=== PATIENT | female | born 1960 | race African-American/Black ===

== ENCOUNTER 2016-12-02 13:31 | Inpatient (IN) | payer OTHER ==
[2016-12-02 13:37] VITALS: BMI 26.0
--- NOTE | 2016-12-02 13:59 | PDOC ---
Attending Attestation - Resident Resident Name: Flako Rossson - ED Attending Attestation I have performed the following: I have examined & evaluated the patient, The case was reviewed & discussed with the resident, I agree w/resident's findings & plan, Exceptions are as noted - HPI HPI: 56 yo F history HIV, diverticulosis, bowel resection presents with 1 month history of intermittent nausea, vomiting, and abdominal pain. She also reports diarrhea and soft green stool. She previously followed up at [facility], but more recently has been seen at [facility] in the inpatient and outpatient setting. She states she had endoscopy while admitted, no acute findings. She was discharged without any changes in her treatment, and her symptoms have continued. She reports recent CD4 count ~200. - Physicial Exam PE: GENERAL: Awake, alert, and fully oriented, in no acute distress. Appears uncomfortable. HEAD: No signs of trauma EYES: PERRLA, EOMI, sclera anicteric, conjunctiva clear ENT: Auricles normal inspection, hearing grossly normal, nares patent, oropharynx clear without exudates. Dry mucosa NECK: Normal ROM, supple, no lymphadenopathy, JVD, or masses LUNGS: Breath sounds equal, clear to auscultation bilaterally. No wheezes, and no crackles HEART: Regular rate and rhythm, normal S1 and S2, no murmurs, rubs or gallops ABDOMEN: Soft, diffusely tender, normoactive bowel sounds. No guarding, no rebound. No masses EXTREMITIES: Normal range of motion, no edema. No clubbing or cyanosis. No cords, erythema, or tenderness NEUROLOGICAL: Cranial nerves II through XII grossly intact. Normal speech, normal gait SKIN: Warm, Dry, normal turgor, no rashes or lesions noted. - Medical Decision Making Patient with diffuse abd tenderness, found to have elevated LFTs. Will obtain gallbladder sono to evaluate for possible GB pathology. If negative, will obtain CT a/p. Will also send stool studies, as she may also be at risk for opportunistic infections. Plan for admission.
[2016-12-02] MEDS ORDERED: SODIUM CHLORIDE 250 ML IV STA (14:16)
--- NOTE | 2016-12-02 14:16 | PDOC ---
History of Present Illness - General Chief Complaint: Nausea/Vomiting Stated Complaint: NAUSEA, LOSS OF APPETITE Time Seen by Provider: 12/02/16 13:55 - History of Present Illness Initial Comments: 12/02/16 13:58 56 yo F with h/o HIV, diverticulosis, and bowel resection who presents with abdominal pain. Pt. reports one month of ongoing nausea/vomitting, abdominal pain, and diarrhea with intermixed soft green stools. She states that she was admitted at [facility] [employer] for 4 days for GI complaint. While inpatient she received endoscopy and had negative evaluation and discharged without antibiotics. Abdominal pain is diffuse, worsening, chronic, and crampy. She endorses lightheadedness, SOB, and chronic neuropathic pain, and episode of urinary incontinence 2 days prior. Denies chest pain, fevers, or chills, dysuria. Has been unable to tolerate PO intake d/t recurrent vomiting and unable to take prescription meds. Denies postprandial pain. No alleviators. Has h/o left sided spigelian hernia. Allergic to Metocloprmide/tongue swelling. Pt. reports CD4 count 200. Past History - Past Medical History Allergies/Adverse Reactions: Allergies Allergy/AdvReac Type Severity Reaction Status Date / Time erythromycin base Allergy Intermediate Verified 12/02/16 13:37 [Erythromycin Base] iodine [Iodine] Allergy Intermediate Hives Verified 12/02/16 13:37 sulfamethoxazole Allergy Intermediate Verified 12/02/16 13:37 [From Bactrim DS] trimethoprim Allergy Intermediate Verified 12/02/16 13:37 [From Bactrim DS] acetaminophen [From Vicodin] Allergy Mild Itching Verified 12/02/16 13:37 codeine [Codeine] Allergy Mild Itching Verified 12/02/16 13:37 hydrocodone bitartrate Allergy Mild Itching Verified 12/02/16 13:37 [From Vicodin] Penicillins Allergy Mild Itching Verified 12/02/16 13:37 metoclopramide HCl Allergy TONGUE Verified 12/02/16 13:37 [From Reglan] SWELLING prochlorperazine edisylate Allergy Verified 12/02/16 13:37 [From Compazine] prochlorperazine maleate Allergy Verified 03/30/12 14:44 [From Compazine] quetiapine fumarate Allergy Verified 01/06/13 14:44 [From Seroquel] Home Medications: Ambulatory Orders Atazanavir [Reyataz -] 300 mg PO DAILY 07/13/11 Emtricitabine/Tenofovir [Truvada -] 200 tab PO DAILY 07/13/11 Oxycodone HCl [Roxicodone -] 5 mg PO Q6H PRN 03/10/12 Acetaminophen [Tylenol .Regular Strength -] 325 mg PO Q4H 04/25/12 Candesartan Cilexetil [Atacand] 8 mg PO BID 04/25/12 Polyethylene Glycol 3350 [Miralax 255 gm Btl] 17 gm PO BID #1 bottle 04/25/12 Psyllium Seed [Metamucil] 1 each PO BID #0 packet 04/25/12 Ranitidine Oral Solution [Zantac Oral Solution -] 150 mg PO DAILY 04/25/12 Zolpidem Tartrate [Ambien] 5 mg PO PRN 04/25/12 Ritonavir [Norvir] 100 mg PO 04/30/12 Anemia: No Asthma: Yes Cancer: Yes (See breast CA) Cardiac Disorders: No CVA: No COPD: No CHF: No Dementia: No Diabetes: No GI Disorders: Yes (GERD, DIVERTICULITIS, HERNIA) Disorders: No HTN: No Hypercholesterolemia: No HIV: Yes Liver Disease: No Seizures: No Thyroid Disease: No Other medical history: NEUROPATHY - Surgical History Abdominal Surgery: Yes (HERNIA) Appendectomy: No Cardiac Surgery: No Cholecystectomy: No GI Surgery: Yes (COLOSTOMY WITH REVERSAL) Lung Surgery: Yes (BIOPSY,DECREASED 02) Neurologic Surgery: No Orthopedic Surgery: No - Psycho/Social/Smoking Cessation Hx Anxiety: No Suicidal Ideation: No Smoking Status: No Smoking History: Current every day smoker Have you smoked in the past 12 months: No Number of Cigarettes Smoked Daily: 6 Cigars Per Day: 0 Information on smoking cessation initiated: No 'Breaking Loose' booklet given: 04/25/12 Hx Alcohol Use: No Drug/Substance Use Hx: No Substance Use Type: None Hx Substance Use Treatment: Yes Review of Systems - Review of Systems Comments:: 12/02/16 13:58 GENERAL/CONSTITUTIONAL: No fever or chills. No weakness. HEAD, EYES, EARS, NOSE AND THROAT: No change in vision. No ear pain or discharge. No sore throat.- CARDIOVASCULAR: No chest pain or shortness of breath RESPIRATORY: No cough, wheezing, or hemoptysis. GASTROINTESTINAL: + No nausea, and vomiting, diarrhea. No constipation. GENITOURINARY: No dysuria, frequency, or change in urination. MUSCULOSKELETAL: No joint or muscle swelling or pain. No neck or back pain. SKIN: No rash NEUROLOGIC: No headache, vertigo, loss of consciousness, or change in strength/ sensation. ENDOCRINE: No increased thirst. No abnormal weight change HEMATOLOGIC/LYMPHATIC: No anemia, easy bleeding, or history of blood clots. ALLERGIC/IMMUNOLOGIC: No hives or skin allergy. *Physical Exam - Vital Signs Last Vital Signs Temp Pulse Resp BP Pulse Ox 99.0 F 83 20 132/57 100 12/02/16 13:31 12/02/16 13:31 12/02/16 13:31 12/02/16 13:31 12/02/16 13:31 - Physical Exam Comments: 12/02/16 13:59 GENERAL: Awake, alert, and fully oriented, in no acute distress HEAD: No signs of trauma, normocephalic, atraumatic EYES: PERRLA, EOMI, sclera anicteric, conjunctiva clear ENT: Auricles normal inspection, hearing grossly normal, nares patent, oropharynx clear without exudates. Moist mucosa NECK: Normal ROM, supple, no lymphadenopathy, JVD, or masses LUNGS: No distress, speaks full sentences, clear to auscultation bilaterally HEART: Regular rate and rhythm, normal S1 and S2, no murmurs, rubs or gallops, peripheral pulses normal and equal bilaterally. ABDOMEN: + Midline incision scar and LLQ horizontal scar. Soft,diffusely ttp.+ Ttp superior to non buldging LLQ hernia. Normoactive bowel sounds. No guarding , no rebound. No masses. Absent CVA ttp.+ BL CVA ttp. EXTREMITIES : Normal inspection, Normal range of motion, no edema. No clubbing or cyanosis. SKIN: Warm, Dry, normal turgor, no rashes or lesions noted. ED Treatment Course - LABORATORY CBC & Chemistry Diagram: 12/02/16 14:30 12/02/16 14:30 Medical Decision Making - Medical Decision Making 12/02/16 15:01 56 yo F with h/o diverticulosis, and bowel resection who presents with abdominal pain. Pt. reports one month of ongoing nausea/vomiting, abdominal pain , and diarrhea with intermixed soft green stools. Recently admitted at [facility] for 4 days for GI complaint. While inpatient she received endoscopy and had negative evaluation and discharged without antibiotics. Physical exam reveals hemodynamic stability and diffuse abdominal ttp. Has been unable to tolerate PO intake d/t recurrent vomiting and unable to take prescription meds. States that CD4 count is 200. DDx:Diverticulitis/diverticulosis, CMV colitis, Cryptosporodium Incarcerated hernia, Strangulated hernia, colitis, cystitis, pyelonephriits. ED course: CBC, CMP, UA, Lipase, Lactate NS 1 L Dilaudid .5 mg IV Zofran 4 mg IV 12/02/16 15:50 WBC: 3.9 12/02/16 15:51 ASt/ALT: 138/127 Alk Phosph: 202 Bili: 2.3 12/02/16 15:52 Lipase 142 Lactic acid: 1.2 12/02/16 18:46 GB U/S: Neg 12/02/16 20:30 CT Abdomen/Pelvis: Non obstructed ventral hernias and low attenuation splenic lesion EKG : unremarkable *DC/Admit/Observation/Transfer Diagnosis at time of Disposition: Combined abdominal pain, vomiting, and diarrhea - Discharge Dispostion Admit: Yes - Referrals Referrals: STAFF,NOT ON [Primary Care Provider] -
[2016-12-02] MEDS ORDERED: ONDANSETRON 4 MG/2 ML VIAL IVPUSH ONE (14:44)
[2016-12-02 14:46] LABS: MCH 26.7 pg (25.7-33.7); MCHC 34.4 g/dl (32.0-36.0); MEAN CELL VOLUME 77.6 fl (80-96); MEAN PLT VOLUME 8.4 fl (7.5-11.1); PLATELET COUNT 140 K/MM3 (134-434); RDW 15.8 % (11.6-15.6); WHITE BLOOD COUNT 3.9 K/mm3 (4.0-10.0)
[2016-12-02] MEDS ORDERED: HYDROmorphone HCL CARPU-JECT 1 MG/1 ML DISP.SYRIN IVPB ONE ×2 (14:54→21:02)
[2016-12-02 15:06] LABS: ALK PHOS 202 U/L (45-117); ANION GAP 11 (8-16); BILIRUBIN,TOTAL 2.3 mg/dL (0.2-1.0); CALCIUM 10.6 mg/dL (8.5-10.1); CO2 22 mmol/L (21-32); CREATININE 0.6 mg/dL (0.55-1.02); GLUCOSE,RANDOM 84 mg/dL (74-106); SGOT/AST 138 U/L (15-37); SGPT/ALT 127 U/L (12-78); TOT PROT 6.1 g/dl (6.4-8.2)
[2016-12-02] MEDS ORDERED: HYDROmorphone HCL CARPU-JECT 1 MG/1 ML DISP.SYRIN ONE ×2 (15:42→21:07)
[2016-12-02] MEDS ORDERED: ONDANSETRON 4 MG/2 ML VIAL ONE ×2 (15:43→20:15)
[2016-12-02 15:44] LABS: TOTAL CELLS COUNTED 100
[2016-12-02] MEDS ORDERED: ONDANSETRON 4 MG/2 ML VIAL IVPB ONE (20:14)
[2016-12-02] MEDS ORDERED: SODIUM CHLORIDE 1,000 ML IV STA (20:19)
--- NOTE | 2016-12-02 20:25 | PN ---
Teaching Attending Note Name of Resident: Smitha Rivera ATTENDING PHYSICIAN STATEMENT I saw and evaluated the patient. I reviewed the resident's note and discussed the case with the resident. I agree with the resident's findings and plan as documented. SUBJECTIVE: 56 yo F with hx. of HIV, Diverticulosis, bowel resection who presents with abdominal pain. States this pain has been present for one month. States she has been having diarrhea also. Notes she was recently admittted to [facility] 3 weeks ago for same complaint. States she had a extensive workup there. Notes she had a EGD there that was negative. Allergies: Reglan Allergies Allergy/AdvReac Type Severity Reaction Status Date / Time erythromycin base Allergy Intermediate Verified 12/02/16 13:37 [Erythromycin Base] iodine [Iodine] Allergy Intermediate Hives Verified 12/02/16 13:37 sulfamethoxazole Allergy Intermediate Verified 12/02/16 13:37 [From Bactrim DS] trimethoprim Allergy Intermediate Verified 12/02/16 13:37 [From Bactrim DS] acetaminophen [From Vicodin] Allergy Mild Itching Verified 12/02/16 13:37 codeine [Codeine] Allergy Mild Itching Verified 12/02/16 13:37 hydrocodone bitartrate Allergy Mild Itching Verified 12/02/16 13:37 [From Vicodin] Penicillins Allergy Mild Itching Verified 12/02/16 13:37 metoclopramide HCl Allergy TONGUE Verified 12/02/16 13:37 [From Reglan] SWELLING prochlorperazine edisylate Allergy Verified 12/02/16 13:37 [From Compazine] prochlorperazine maleate Allergy Verified 03/30/12 14:44 [From Compazine] quetiapine fumarate Allergy Verified 03/30/12 14:44 [From Seroquel] OBJECTIVE: Physical: VS: Vital Signs Period Temp Pulse Resp BP Sys/De Guzman Pulse Ox Last 24 Hr 98.1 F-99.0 F 80-83 18-20 128-132/57-64 100-100 GEN: NAD, Resting in bed HEENT: NCAT, PERRLA, Throat without erythema or exudate CARD: RRR S1, S2 RESP: CTAB ABD: BSX4, mild diffuse tenderness to palpation, midline abdominal scar, RLQ scar EXT: R. Shoulder unable to extend past 90 degree CBCD WBC 3.9 K/mm3 (4.0-10.0) L 12/02/16 14:30 RBC 3.63 M/mm3 (3.60-5.2) 12/02/16 14:30 Hgb 9.7 GM/dL (10.7-15.3) L 12/02/16 14:30 Hct 28.2 % (32.4-45.2) L 12/02/16 14:30 MCV 77.6 fl (80-96) L 12/02/16 14:30 MCHC 34.4 g/dl (32.0-36.0) 12/02/16 14:30 RDW 15.8 % (11.6-15.6) H 12/02/16 14:30 Plt Count 140 K/MM3 (134-434) D 12/02/16 14:30 MPV 8.4 fl (7.5-11.1) 12/02/16 14:30 CMP Sodium 141 mmol/L (136-145) 12/02/16 14:30 Potassium 4.3 mmol/L (3.5-5.1) 12/02/16 14:30 Chloride 108 mmol/L (98-107) H 12/02/16 14:30 Carbon Dioxide 22 mmol/L (21-32) 12/02/16 14:30 Anion Gap 11 (8-16) 12/02/16 14:30 BUN 15 mg/dL (7-18) D 12/02/16 14:30 Creatinine 0.6 mg/dL (0.55-1.02) D 12/02/16 14:30 Creat Clearance w eGFR > 60 (>60) 12/02/16 14:30 Random Glucose 84 mg/dL (74-106) 12/02/16 14:30 Calcium 10.6 mg/dL (8.5-10.1) H D 12/02/16 14:30 Total Bilirubin 2.3 mg/dL (0.2-1.0) H D 12/02/16 14:30 AST 138 U/L (15-37) H D 12/02/16 14:30 ALT 127 U/L (12-78) H D 12/02/16 14:30 Alkaline Phosphatase 202 U/L (45-117) H D 12/02/16 14:30 Total Protein 6.1 g/dl (6.4-8.2) L 12/02/16 14:30 Albumin 3.0 g/dl (3.4-5.0) L 12/02/16 14:30 CT ABD/PELVIS: ? Low attenuation lesion of the spleen, ventral Hernias without obstruction, post-surgical changes to the bowel. UA- PENDING ASSESSMENT AND PLAN: 56 yo F with hx. of HIV, Divrticulosism and bowel resection who presents with abdominal pain, found to have transaminitis 1.) Abdominal Pain- Iretractable - Had full workup at [facility]- please obtain records in AM - Zofran prn nausea -STAT UA, Ucx 2.) Diarrhea - Chk. C. Diff, Stool Cx, O&P - Flagyl empirically 3.) HIV - C/W HAART - Last CD4 200 as per pt, Recheck 4.) Transaminitis - Hep. panel - Liver US if not already done 4.) Splenic Lesion - Unknown Etiology, await final read of CT - GI consult- If not evaluate at [facility] 5.) Microcytic Anemia - Stool Occult - Iron Studies 6.) Hypercalcemia - IVF - Chk PtH 7.) R. Shoulder Pain - Xray Shoulder 7.) Dvt Ppx - Low Risk - SCD Place in OBS
[2016-12-02] MEDS ORDERED: morphine CARPU-JECT 2 MG/1 ML DISP.SYRIN IVPUSH ONE (20:59)
[2016-12-02] MEDS ORDERED: ONDANSETRON 4 MG/2 ML VIAL IVPB PRN (21:29)
--- NOTE | 2016-12-02 21:29 | HP ---
CHIEF COMPLAINT: Abdominal pain PCP: Unknown ID Doctor- Dr. Jay rousseau- [facility] GI Doctor- Dr. Maurer- [facility] HISTORY OF PRESENT ILLNESS: 56 y.o. F with pmh of HIV (CD4 count 176 checked last month by ID doctor), diverticulosis, bowel resection with colostomy and revision of colostomy presents with 1 month hx of abdominal pain, nausea, and vomiting. Patient states abdominal pain is diffuse, crampy, 10/10. Pain started gradually and worsened after meals. Patient was evaluated at [facility] 3 times and admitted once for 4 days. Patient underwent full workup including endoscopy , which patient was told was negative. Patient endorses chills, n/v/d, [place], lightheadedness, and urinary incontinence x2 days. ER course was notable for: (1)hgb 9.7, hct 28.2, ast- 138, alt-128, alp-202, t bili-2.3 (2) u/s gb- negative (3) ct abd/pelvis- Non obstructed ventral hernias and low attenuation splenic lesion, EKG : unremarkable Recent Travel: denies PAST MEDICAL HISTORY: as per hpi PAST SURGICAL HISTORY: b/l hip replacements, hernia repair, colostomy w/ reversal Social History: Smokin cigs/day Alcohol: denies Drugs: denies Family History: Allergies erythromycin base [Erythromycin Base] Allergy (Intermediate, Verified 12/02/16 13:37) Rash iodine [Iodine] Allergy (Intermediate, Verified 12/02/16 13:37) Hives Rash sulfamethoxazole [From Bactrim DS] Allergy (Intermediate, Verified 12/02/16 13: 37) Rash trimethoprim [From Bactrim DS] Allergy (Intermediate, Verified 12/02/16 13:37) Rash acetaminophen [From Vicodin] Allergy (Mild, Verified 12/02/16 13:37) Itching codeine [Codeine] Allergy (Mild, Verified 12/02/16 13:37) Itching hydrocodone bitartrate [From Vicodin] Allergy (Mild, Verified 12/02/16 13:37) Itching Penicillins Allergy (Mild, Verified 12/02/16 13:37) Itching metoclopramide HCl [From Reglan] Allergy (Verified 12/02/16 13:37) TONGUE SWELLING prochlorperazine edisylate [From Compazine] Allergy (Verified 12/02/16 13:37) prochlorperazine maleate [From Compazine] Allergy (Verified 03/30/12 14:44) quetiapine fumarate [From Seroquel] Allergy (Verified 03/30/12 14:44) Tongue swelling HOME MEDICATIONS: Home Medications Medication Instructions Recorded Atazanavir [Reyataz -] 300 mg PO DAILY 07/13/11 Ritonavir [Norvir] 100 mg PO DAILY 04/30/12 Cholecalciferol (Vitamin D3) 500 units PO DAILY 12/02/16 [Vitamin D -] Dolutegravir Sodium [Tivicay] 50 mg PO DAILY 12/02/16 Dronabinol 5 mg PO DAILY 12/02/16 Famotidine [Pepcid -] 40 mg PO DAILY 12/02/16 Multivitamin [Poly-Vitamin] 1 each PO DAILY 12/02/16 Ondansetron HCl [Zofran] 4 mg PO PRN 12/02/16 REVIEW OF SYSTEMS CONSTITUTIONAL: Absent: fever, chills, diaphoresis, generalized weakness, malaise, loss of appetite, weight change HEENT: Absent: rhinorrhea, nasal congestion, throat pain, throat swelling, difficulty swallowing, mouth swelling, ear pain, eye pain, visual changes CARDIOVASCULAR: Absent: chest pain, syncope, palpitations, irregular heart rate, lightheadedness , peripheral edema RESPIRATORY: Absent: cough, shortness of breath, dyspnea with exertion, orthopnea, wheezing, stridor, hemoptysis GASTROINTESTINAL: Absent: abdominal pain, abdominal distension, nausea, vomiting, diarrhea, constipation, melena, hematochezia GENITOURINARY: Absent: dysuria, frequency, urgency, hesitancy, hematuria, flank pain, genital pain, incontinence MUSCULOSKELETAL: Absent: myalgia, arthralgia, joint swelling, back pain, neck pain SKIN: Absent: rash, itching, pallor HEMATOLOGIC/IMMUNOLOGIC: Absent: easy bleeding, easy bruising, lymphadenopathy, frequent infections ENDOCRINE: Absent: unexplained weight gain, unexplained weight loss, heat intolerance, cold intolerance NEUROLOGIC: Absent: headache, focal weakness or paresthesias, dizziness, unsteady gait, seizure, mental status changes, bladder or bowel incontinence PSYCHIATRIC: Absent: anxiety, depression, suicidal or homicidal ideation, hallucinations. PHYSICAL EXAMINATION GENERAL: Awake, alert, and fully oriented, in mild distress. HEAD: Normal with no signs of trauma. EYES: Pupils equal, round and reactive to light, extraocular movements intact, sclera anicteric, conjunctiva clear. No lid lag. EARS, NOSE, THROAT: Ears normal, nares patent, oropharynx clear without exudates. DRY mucous membranes. NECK: Normal range of motion, supple without lymphadenopathy, JVD, or masses. LUNGS: Breath sounds equal, clear to auscultation bilaterally. No wheezes, and no crackles. No accessory muscle use. HEART: Regular rate and rhythm, normal S1 and S2 without murmur, rub or gallop. ABDOMEN: Soft, +TTP in all 4 quadrents, +healed scars in midline and LLQ, + bustos's sign, normoactive bowel sounds, no guarding, no rebound, no masses. No hepatomegaly or splenomegaly. MUSCULOSKELETAL: Normal range of motion at all joints. No bony deformities or tenderness. + CVA tenderness. UPPER EXTREMITIES: 2+ pulses, warm, well-perfused. No cyanosis. No clubbing. No peripheral edema. LOWER EXTREMITIES: 2+ pulses, warm, well-perfused. No calf tenderness. No peripheral edema. NEUROLOGICAL: Cranial nerves II-XII intact. Normal speech. PSYCHIATRIC: Cooperative. Good eye contact. Appropriate mood and affect. SKIN: Warm, dry, normal turgor, no rashes or lesions noted, normal capillary refill. ASSESSMENT/PLAN: 56 y.o. F with pmh of HIV, colostomy w/ revision, and diverticulosis presenting with 1 month hx of abdominal pain. # Intractable abdominal pain -Full workup done at [facility]-- records not able to be obtained -Zofran 4 mg q6 prn -ivf @ 75 cc/hr -UA/UCx pending -NPO -u/s gb- negative, ct abd/pelvis- Non obstructed ventral hernias and low attenuation splenic lesion -Patient has been seen in the past by Dr. Valencia #Diarrhea -Patient was recently told she has IBS -Stool cx pending -C. Diff pending -Stool O&P pending -Flagyl 500 mg IV q8h #Transaminitis -U/s gallbladder negative -CT abd/pelvis- non obstructed ventral hernias and low attenuation splenic lesion -Acute hepatitis panel -Obtain records from [facility] #HIV -CD4 176 per patient -Continue HAART medications (Norvir, Tivicay, Reytaaz) -Recheck CD4 count -Obtain records from ID doctor #Microcytic anemia -Stool for occult blood -Iron studies pending -monitor H/H #FEN/GI -IVF ns @ 75cc /hr -wnl -Regular Diet #PPX -dvt- SCDs -GI - IV pepcid bid #Dispo -Observation -Obtain records from outside facilities. Pending results. -Norvir, Tivicay, Reytaaz, and Pepcid have been confirmed, rest of medications need to be confirmed Visit type - Emergency Visit Emergency Visit: Yes ED Registration Date: 12/02/16 Care time: The patient presented to the Emergency Department on the above date and was hospitalized for further evaluation of their emergent condition. - New Patient This patient is new to me today: Yes Date on this admission: 12/03/16 - Critical Care Critical Care patient: No
[2016-12-02 22:28] LABS: URINE APPEARANCE CLEAR; URINE BILIRUBIN NEGATIVE (NEGATIVE); URINE BLOOD NEGATIVE (NEGATIVE); URINE COLOR YELLOW; URINE GLUCOSE (UA) NEGATIVE (NEGATIVE); URINE KETONE 1+ (NEGATIVE); URINE LEUK ESTERASE TRACE (NEGATIVE); URINE NITRITE NEGATIVE (NEGATIVE); URINE PROTEIN NEGATIVE (NEGATIVE); URINE UROBILINOGEN NEGATIVE mg/dL (0.2-1.0)
[2016-12-02 22:36] LABS: URINE BACTERIA RARE /hpf (NONE SEEN); URINE MUCUS RARE; URINE RBC <1 /hpf (0-3); URINE WBC 4 /hpf (3-5)
[2016-12-02] MEDS ORDERED: diphenhydrAMINE HCL 25 MG CAPSULE (FP) PO ONE (22:48)
[2016-12-03] MEDS ORDERED: METRONIDAZOLE 500 MG PREMIXED 100 ML IVPB SCH (02:00)
[2016-12-03] MEDS: SODIUM CHLORIDE 1,000 ML IV SCH ×2 (07:33→21:59)
[2016-12-03 08:33] LABS: MCH 26.9 pg (25.7-33.7); MCHC 34.8 g/dl (32.0-36.0); MEAN CELL VOLUME 77.2 fl (80-96); MEAN PLT VOLUME 8.2 fl (7.5-11.1); PLATELET COUNT 141 K/MM3 (134-434); RDW 15.5 % (11.6-15.6); WHITE BLOOD COUNT 3.4 K/mm3 (4.0-10.0)
[2016-12-03 08:59] LABS: ALBUMIN 2.7 g/dl (3.4-5.0); ANION GAP 11 (8-16); CALCIUM 10.1 mg/dL (8.5-10.1); CO2 22 mmol/L (21-32); CREATININE 0.5 mg/dL (0.55-1.02); GLUCOSE,RANDOM 72 mg/dL (74-106); SGOT/AST 118 U/L (15-37); SGPT/ALT 119 U/L (12-78)
[2016-12-03 09:01] LABS: ALK PHOS 203 U/L (45-117); BILIRUBIN,TOTAL 1.9 mg/dL (0.2-1.0); TOT PROT 5.5 g/dl (6.4-8.2)
[2016-12-03] MEDS: metroNIDAZOLE 250 MG TABLET PO SCH ×2 (09:15→15:14)
[2016-12-03] MEDS ORDERED: PT OWN MED DRAWER 7, Y5N ONE ×2 (09:51→11:50)
[2016-12-03] MEDS ORDERED: FAMOTIDINE 20 MG/50 ML IVPB 50 ML IVPB SCH (10:00)
[2016-12-03] MEDS ORDERED: RITONAVIR 100 MG TABLET PO SCH (10:00)
[2016-12-03] MEDS ORDERED: PATIENT'S OWN MEDICATION (NON-FORMULARY) (Dolutegravir Sodium 50 MG) PO SCH (10:00)
[2016-12-03] MEDS ORDERED: ATAZANAVIR SO4 300 MG CAPSULE PO SCH (10:00)
[2016-12-03 10:01] LABS: TOTAL CELLS COUNTED 100
[2016-12-03] MEDS ORDERED: ATAZANAVIR SO4 150 MG CAPSULE PO SCH (11:08)
[2016-12-03] MEDS ORDERED: oxyCODONE HCL 5 MG TABLET PO ONE (11:43)
[2016-12-03] MEDS ORDERED: ONDANSETRON *ODT* 4 MG TABLET SL PRN (11:55)
[2016-12-03] MEDS ORDERED: diphenhydrAMINE HCL 25 MG CAPSULE (FP) PO ONE (11:55)
--- NOTE | 2016-12-03 14:27 | PN ---
Physical Exam: SUBJECTIVE: Patient seen and examined at the bedside. She reports crampy abdominal pain with sips of clears. Denies any chest pain or shortness of breath. OBJECTIVE: Patient signed consent to obtain her medical records (endoscopy report) from [facility] , faxed request to [facility] medical records. Vital Signs Period Temp Pulse Resp BP Sys/De Guzman Pulse Ox Last 24 Hr 98 F-98.8 F 86-96 20-22 116-135/57-69 99 GENERAL: The patient is awake, alert, and fully oriented, in no acute distress. HEAD: Normal with no signs of trauma. EYES: PERRL, extraocular movements intact, sclera anicteric, conjunctiva clear. No ptosis. ENT: Ears normal, nares patent, oropharynx clear without exudates, moist mucous membranes. NECK: Trachea midline, full range of motion, supple. LUNGS: Breath sounds equal, clear to auscultation bilaterally, no wheezes ABDOMEN: Soft, +tender, nondistended, hyperactive bowel sounds, old surgical well healed scar EXTREMITIES: no edema. NEUROLOGICAL: Normal speech, gait not observed. PSYCH: Normal mood, normal affect. SKIN: Warm, dry, normal turgor, no rashes or lesions noted Laboratory Results - last 24 hr 12/02/16 12/03/16 12/03/16 22:17 08:10 08:10 WBC 3.4 L RBC 3.24 L Hgb 8.7 L D Hct 25.0 L MCV 77.2 L MCH 26.9 MCHC 34.8 RDW 15.5 Plt Count 141 MPV 8.2 Total Counted 100 Neutrophils % Y Neutrophils % (Manual) 28 L D Lymphocytes % Y Lymphocytes % (Manual) 58 H D Monocytes % (Manual) 8 Eosinophils % (Manual) 6 H D Sodium 142 Potassium 3.8 Chloride 109 H Carbon Dioxide 22 Anion Gap 11 BUN 15 Creatinine 0.5 L Creat Clearance w eGFR > 60 Random Glucose 72 L Calcium 10.1 Ferritin Total Bilirubin 1.9 H AST 118 H ALT 119 H Alkaline Phosphatase 203 H Total Protein 5.5 L Albumin 2.7 L Urine Color Yellow Urine Appearance Clear Urine pH 5.0 Urine Protein Negative Urine Glucose (UA) Negative Urine Ketones 1+ H Urine Blood Negative Urine Nitrite Negative Urine Bilirubin Negative Urine Urobilinogen Negative Ur Leukocyte Esterase Trace Urine RBC <1 Urine WBC 4 Ur Epithelial Cells Rare Urine Bacteria Rare Urine Mucus Rare Stool Occult Blood 12/03/16 12/03/16 08:10 12:15 WBC RBC Hgb Hct MCV MCH MCHC RDW Plt Count MPV Total Counted Neutrophils % Neutrophils % (Manual) Lymphocytes % Lymphocytes % (Manual) Monocytes % (Manual) Eosinophils % (Manual) Sodium Potassium Chloride Carbon Dioxide Anion Gap BUN Creatinine Creat Clearance w eGFR Random Glucose Calcium Ferritin 1240.640 H Total Bilirubin AST ALT Alkaline Phosphatase Total Protein Albumin Urine Color Urine Appearance Urine pH Urine Protein Urine Glucose (UA) Urine Ketones Urine Blood Urine Nitrite Urine Bilirubin Urine Urobilinogen Ur Leukocyte Esterase Urine RBC Urine WBC Ur Epithelial Cells Urine Bacteria Urine Mucus Stool Occult Blood Negative Active Medications Generic Name Dose Route Start Last Admin Trade Name Freq PRN Reason Stop Dose Admin Atazanavir 300 mg 12/03/16 11:08 Reyataz - PO DAILY [facility] Sodium Chloride 1,000 mls @ 75 mls/hr 12/02/16 21:45 12/03/16 07:33 Normal Saline - IV Not Given ASDIR [facility] Famotidine/Sodium Chloride 50 mls @ 100 mls/hr 12/03/16 10:00 12/03/16 09:50 Pepcid 20 Mg Premixed Ivpb - IVPB Not Given BID PRAKASH Metronidazole 500 mg 12/03/16 07:15 12/03/16 09:15 Flagyl - PO Not Given TID [facility] Non-Formulary Medication 50 mg 12/03/16 10:00 Dolutegravir Sodium PO DAILY [facility] Ondansetron HCl 4 mg 12/02/16 21:29 Zofran Injection IVPB Q6H PRN NAUSEA Ondansetron HCl 4 mg 12/03/16 11:55 12/03/16 12:41 Zofran Odt - SL 4 mg Q8H PRN Administration NAUSEA AND/OR VOMITING Ritonavir 100 mg 12/03/16 10:00 12/03/16 11:54 Norvir - PO Not Given DAILY [facility] ASSESSMENT/PLAN: Patient is a 56 year old female with a significant past medical history of HIV, colostomy w/ revision, and diverticulosis. She presented to the ER on 2016 with abdominal pain, nausea, vomiting and diarrhea. Pt. reports one month of ongoing nausea/vomiting, abdominal pain, and diarrhea with intermixed soft green/yellow stools. She states that she was admitted at [facility] 3 weeks ago for 4 days for abdominal pain. While inpatient she received endoscopy and had negative evaluation and discharged without antibiotics. Abdominal pain is diffuse, worsening, chronic, and crampy. She endorses episodes of urinary incontinence 2 days prior. Denies chest pain, fevers, or chills, dysuria. Has been unable to tolerate PO intake d/t recurrent vomiting and unable to take prescription meds. CT/Abdomen & pelvis CT w/o contrast: Faint hyperdensity with the lower pole of the spleen. U/S follow up recommended. Multiple ventral hernias. No acute pathology within the abdomen or pelvis. Spigelian hernia with the left lower quad which does contain non obstructed small bowel loops, there are 2 small ventral hernais within the upper abdomen. No evidence of fluid collections or lymphadenopathy. Patient is s/p sigmoid resection. US/Gallbladder: normal abdominal sonogram GI: Abdominal Pain with N/V/D - acute on chronic A/P: As per admission, notes, full workup was recently done at [facility], will attempt to retrieve records with patient consent On Xofran 4mg IV q6, NS @ 75cc/hr, continues to have n/v/diarrhea and unable to tolerate PO Maintain NPO Ultrasound of gallbladder negative, ct abd/pelvis: non obstructed ventral hernias and low attenuation splenic lesion As per records patient recently told she may have IBS Stool culture pending negative for cdiff Stool O&P pending Flagyl 500mg IV q8 GI consult Elevated ast/alt A/P: hepatitis irrigation foreman trend ID: HIV + as per history A/P: CD4 176 as per patient HIV panel pending Continue HAART medications (Norvir, Dolutegravir, Reytaaz) Questionable compliance with anti viral meds Norvir and Reytaaz formulary in hospital, Dolutegravir non formulary ID consulted Hematology: Microcytoc anemia A/P: iron studies pending hmg/hct low stable F.E.N. Fluids: NS @ 75cc/hr Electrolytes: monitor Nutrition: NPO Prophylaxis: DVT: scds, no anticoag secondary to low hmg/hct GI: Zofran scheduled Disposition: Monitor patient in OBS. Full code. Visit type - Emergency Visit Emergency Visit: Yes ED Registration Date: 12/02/16 Care time: The patient presented to the Emergency Department on the above date and was hospitalized for further evaluation of their emergent condition. - New Patient This patient is new to me today: Yes Date on this admission: 12/03/16 - Critical Care Critical Care patient: No - Discharge Referral Referred to [facility] Med P.C.: No
--- NOTE | 2016-12-03 16:43 | PN ---
Progress Note (short form) - Note Progress Note: ID consult dictated imp/reccd 56 year old female with HIV (long standing) one to two month history of intermittent abdominal pain, diarrhea when she eats or drinks and weight loss 20 pounds and weakness non bloody no fevers no travel prior history of multiple episodes of cdiff last episode 1 1/2 years ago originally was seen in ED at [facility] and discharged was hospitalized at [facility] and had endoscopy and discharged returned to [facility] ED 2 days ago and was sent home intermittent ART use has missed about one week in the last month intermittent vomiting was switched from Truvada/reyataz/norvir to tivicay/reyataz/norvir about 3 months ago has been taking zofran prn at home reports last tcells about 300 one month ago ID doctor is Dr Jay Fuentes [phone]- I called office is closed -will call in am hiv- suggest holding ART until her GI symptoms are better she is agreeable check T cells will contact her ID doctor in am diarrhea- need records from [place], GI consult may need lower endoscopy send stools for stool studies continue hydration cdiff is negative abnormal LFTS hep serology CPK d/w hospitalist Problem List - Problems (1) Abdominal pain, vomiting, and diarrhea Code(s): R10.9 - UNSPECIFIED ABDOMINAL PAIN R11.10 - VOMITING, UNSPECIFIED R19.7 - DIARRHEA, UNSPECIFIED (2) Abnormal LFTs Code(s): R79.89 - OTHER SPECIFIED ABNORMAL FINDINGS OF BLOOD CHEMISTRY (3) HIV (human immunodeficiency virus infection) Code(s): B20 - HUMAN IMMUNODEFICIENCY VIRUS [HIV] DISEASE
[2016-12-03] MEDS: METRONIDAZOLE 500 MG PREMIXED 100 ML IVPB SCH (17:20)
--- NOTE | 2016-12-03 18:56 | CON.GI ---
Consult Consult Specialty:: gastroenterology Referred by:: hospitalist Reason for Consultation:: abdominal pain - History of Present Illness History of Present Illness: 56 y/o F with PMH of perforated diverticulitis,s/p revion of colostomy, HIV,on HIV medication was admitted because of diffuse abdominal pain, nausea, intermittent vomiting,20lb weight loss and diarrhea. Diarrhea is non-bloody, 6- 10 times a day, awakened by the pain, no travel history, no recent antibiotic use. Patient continue to hav e same symptoms this evening. Cat scan reveal multiple ventral hernias. There was no evidence of enterocolitis. - Past Medical History ...LMP: 04/25/12 - Past Surgical History Additional Surgical History: s/p reversal of colostomy 2014 - Alcohol/Substance Use Hx Alcohol Use: No - Smoking History Smoking history: Current every day smoker Have you smoked in the past 12 months: No Aproximately how many cigarettes per day: 6 Home Medications - Allergies Allergies/Adverse Reactions: Allergies Allergy/AdvReac Type Severity Reaction Status Date / Time erythromycin base Allergy Intermediate Verified 12/02/16 13:37 [Erythromycin Base] iodine [Iodine] Allergy Intermediate Hives Verified 12/02/16 13:37 sulfamethoxazole Allergy Intermediate Verified 12/02/16 13:37 [From Bactrim DS] trimethoprim Allergy Intermediate Verified 12/02/16 13:37 [From Bactrim DS] acetaminophen [From Vicodin] Allergy Mild Itching Verified 12/02/16 13:37 codeine [Codeine] Allergy Mild Itching Verified 12/02/16 13:37 hydrocodone bitartrate Allergy Mild Itching Verified 12/02/16 13:37 [From Vicodin] Penicillins Allergy Mild Itching Verified 12/02/16 13:37 metoclopramide HCl Allergy TONGUE Verified 12/02/16 13:37 [From Reglan] SWELLING prochlorperazine edisylate Allergy Verified 12/02/16 13:37 [From Compazine] prochlorperazine maleate Allergy Verified 03/30/12 14:44 [From Compazine] quetiapine fumarate Allergy Verified 03/30/12 14:44 [From Seroquel] - Home Medications Home Medications: Ambulatory Orders Atazanavir [Reyataz -] 300 mg PO DAILY 07/13/11 Ritonavir [Norvir] 100 mg PO DAILY 04/30/12 Cholecalciferol (Vitamin D3) [Vitamin D -] 500 units PO DAILY 12/02/16 Dolutegravir Sodium [Tivicay] 50 mg PO DAILY 12/02/16 Dronabinol 5 mg PO DAILY 12/02/16 Famotidine [Pepcid -] 40 mg PO DAILY 12/02/16 Multivitamin [Poly-Vitamin] 1 each PO DAILY 12/02/16 Ondansetron HCl [Zofran] 4 mg PO PRN 12/02/16 Review of Systems - Review of Systems Constitutional: denies: Fever Eyes: denies: Blurred Vision HENT: denies: Difficult Swallowing, Throat Pain Cardiovascular: denies: Chest Pain Respiratory: denies: Cough Gastrointestinal: reports: Abdominal Pain, Diarrhea, Nausea. denies: Vomiting Physical Exam-GI Vital Signs: Vital Signs Temperature 99.0 F 12/03/16 18:00 Pulse Rate 95 H 12/03/16 18:00 Respiratory Rate 20 12/03/16 18:00 Blood Pressure 108/61 12/03/16 18:00 O2 Sat by Pulse Oximetry (%) 99 12/03/16 09:00 Constitutional: Yes: Well Nourished Eyes: Yes: Conjunctiva Clear HENT: Yes: Atraumatic Neck: Yes: Supple Cardiovascular: Yes: Regular Rate and Rhythm Respiratory: Yes: CTA Bilaterally ...Palpate: Yes: Soft, Tenderness (--diffuse). No: Firm/Rigid, Guarding, Hepatomegaly, Mass, Pulsatile Mass, Splenomegaly Labs: CBC, BMP 12/03/16 08:10 12/03/16 08:10 Imaging - Results Cat Scan: Report Reviewed Problem List - Problems (1) Abdominal pain, vomiting, and diarrhea Assessment/Plan: r/o infectious diarrhea vs secondary to medication R> consider Ceftriaxone 1 gram daily stool analysis--especially LACHO if possible Code(s): R10.9 - UNSPECIFIED ABDOMINAL PAIN R11.10 - VOMITING, UNSPECIFIED R19.7 - DIARRHEA, UNSPECIFIED (2) Ventral hernia Assessment/Plan: R> surgical consult Code(s): K43.9 - VENTRAL HERNIA WITHOUT OBSTRUCTION OR GANGRENE (3) Elevated liver enzymes Assessment/Plan: --downward trend R/o secondary to medication await viral hepatitis Code(s): R74.8 - ABNORMAL LEVELS OF OTHER SERUM ENZYMES (4) Anemia Assessment/Plan: guaiac negative r/o secondary to meidcation vs infection R> consider hematology consult possible bone marrow Code(s): D64.9 - ANEMIA, UNSPECIFIED
[2016-12-03] MEDS: HYDROmorphone HCL CARPU-JECT 1 MG/1 ML DISP.SYRIN IVPB PRN (19:00)
--- NOTE | 2016-12-03 21:41 | EKG ---
Test Reason : Blood Pressure : / mmHG Vent. Rate : 093 BPM Atrial Rate : 093 BPM P-R Int : 128 ms QRS Dur : 084 ms QT Int : 354 ms P-R-T Axes : 070 002 039 degrees QTc Int : 440 ms NORMAL SINUS RHYTHM NORMAL ECG WHEN COMPARED WITH ECG OF 24-AUG-2008 23:08, NO SIGNIFICANT CHANGE WAS FOUND Confirmed by GLORIA MCARTHUR MD ([id number]) on 12/03/2016 9:40:48 PM Referred By: Confirmed By:GLORIA MCARTHUR MD
[2016-12-03] MEDS: FAMOTIDINE 20 MG/50 ML IVPB 50 ML IVPB SCH (21:59)
[2016-12-03] MEDS ORDERED: hydrOXYzine HCL 25 MG TABLET (FP) PO ONE (23:40)
[2016-12-04] MEDS: METRONIDAZOLE 500 MG PREMIXED 100 ML IVPB SCH ×2 (01:22→09:05)
--- NOTE | 2016-12-04 02:41 | CONS ---
DATE OF CONSULTATION: 12/03/2016 REQUESTING PROVIDER: Hospital service. HISTORY OF PRESENT ILLNESS: This is a 56-year-old woman with a history of longstanding HIV disease. She tells me she has been followed since 2008 at [facility]. She is under the care of Dr. Jay Fuentes there. She presents with a 1-2 month, seems like almost 2-month history, of weight loss, abdominal pain, nausea, and diarrhea. She reports every time she tries to eat or drink that she has diarrhea, nonbloody, and that intermittently it is accompanied by vomiting. She has abdominal cramps as well. She reports that at the start of the summer she weighed 167 pounds. Today she is 147 and has had a 20 pound weight loss. She reports generalized weakness. There has been no fever. There has been no travel. She did have a prior history of multiple episodes of clostridium difficile. The last episode was a year and a half ago. When she originally developed these complaints, she was seen in the emergency room at [facility] and observed there. She had no diarrhea while in the ER, she reports, and she was discharged home. She then went to [facility] where she was admitted, she said, for 3-4 days. 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 It is not clear if she had lower. She reports that she was not given a prep and was discharged home. She continued to have the same symptoms, she reports, with no improvement and with generalized weakness. She returned to [facility] Emergency Room 2 days ago and was told that all of her labs were okay and discharged home. She now presents at [facility] with these complaints. She presented yesterday complaining of these GI complaints. She reports that she cannot even drink any water and even that gives her diarrhea. She was last seen about a month ago by her ID doctor, Dr. Jay Fuentes, and reports her T-cells at that time were about 300. Her daughter stays with her and has a pet dog, but no other pets there. There is no real travel. She went [facility] to [facility] for 1 day, but she was already sick at that time, which is why she did not stay there. She has been taking Zofran intermittently. She has missed she thinks at least 5 days, possibly 7 days of her medications in the last month due to her GI symptoms. ALLERGIES: ERYTHROMYCIN, IODINE, BACTRIM, ACETAMINOPHEN, TYLENOL, VICODIN, CODEINE, PENICILLIN, REGLAN, COMPAZINE, AND SEROQUEL. MEDICATIONS: Atazanavir, Tivicay, ritonavir. She reports that she was on Truvada, Reyataz, and Norvir and about 3 months ago the Truvada was stopped and she was switched to Tivicay. PAST MEDICAL HISTORY: She has had pneumocystis pneumoniae in the past, which is the only opportunistic infection that she recalls. She denies any history of hepatitis or tuberculosis. She has a history of asthma in the past, diverticulosis. She has had a history of bilateral hip replacements done in 2014 at [place]. She has had a colostomy, which was subsequently reversed. It is unclear why she had the colostomy. She has been HIV positive for many years. She has a history of neuropathy and hernias in the past as well. SOCIAL HISTORY: She lives at home. She works, but has not been able to work recently due to her health status. Denies smoking or substance use. REVIEW OF SYSTEMS: Notable for weight loss, intermittent diarrhea, which occurs only when she eats or drinks something. PHYSICAL EXAMINATION: Vital signs: Temperature 99, pulse 92, blood pressure 122/52, respiratory rate 20. She is saturating 99%. She weighs 147 pounds. HEENT: She is normocephalic. Eyes are anicteric. She has no thrush. Neck: Supple. Lungs: Clear to auscultation. Heart: Regular rate and rhythm. Abdomen: Soft. She has a midline incision. She has no distention, but she has diffuse abdominal discomfort to palpation. She has positive bowel sounds. She has a soft, reducible ventral hernia. LABORATORY: Her white count is 3.4, hemoglobin 8.7, platelets of 141. Her BUN is 15 and creatinine is 0.5. Her LFTs are all elevated with a total bilirubin of 1.9, AST 118, ALT 119, alkaline phosphatase of 203. Urinalysis has 4 white cells. Stool occult blood is negative. Clostridium difficile is back and is negative. She had a CT scan of her abdomen and pelvis done in the emergency room as well as a sonogram of her gallbladder. The sonogram of the gallbladder was unremarkable. The CT scan revealed multiple ventral hernias with no acute pathology. She had a gallbladder ultrasound that was normal. IN SUMMARY: 1. This is a 56-year-old woman with HIV. I suggest holding her ART until her GI symptoms are better. She is agreeable as she already has been only intermittently taking her medications. I would check her T-cells. I tried to call her doctor, who unfortunately the office was closed, so I will try again in the morning. 2. Her chronic diarrhea and abdominal symptoms. We need her records from [place]. GI should see her. She may need lower endoscopy. I would send stools for cryptosporidium, giardia, ova and parasites. Stool culture has been sent and is pending. Clostridium difficile is negative. I would continue hydration. 3. Abnormal liver function tests. Hepatitis serology and a CPK. Sonogram is unremarkable. All of the above was discussed with the hospitalist. JORGE THORNTON M.D. [id number]
[2016-12-04 06:06] LABS: SERUM IRON 42 ug/dL (27-159); TOTAL IRON BINDING CAPACITY 129 ug/dL (250-450); UIBC 87 ug/dL (131-425)
[2016-12-04] MEDS: SODIUM CHLORIDE 1,000 ML IV SCH (07:24)
[2016-12-04 08:04] LABS: MCH 26.7 pg (25.7-33.7); MCHC 34.1 g/dl (32.0-36.0); PLATELET COUNT 139 K/MM3 (134-434); RDW 15.6 % (11.6-15.6); WHITE BLOOD COUNT 3.3 K/mm3 (4.0-10.0)
[2016-12-04 08:33] LABS: ALBUMIN 2.8 g/dl (3.4-5.0); ANION GAP 14 (8-16); CO2 21 mmol/L (21-32); CREATININE 0.4 mg/dL (0.55-1.02); GLUCOSE,RANDOM 59 mg/dL (74-106); MAGNESIUM 1.2 mg/dL (1.8-2.4); SGOT/AST 96 U/L (15-37); SGPT/ALT 113 U/L (12-78); TOT PROT 5.5 g/dl (6.4-8.2)
[2016-12-04 08:34] LABS: ALK PHOS 214 U/L (45-117); CPK 27 IU/L (26-192)
[2016-12-04 08:58] LABS: BASOPHIL (MANUAL) 2 % (0-2.0); REACTIVE LYMPHOCYTES 1 % (0-80); TOTAL CELLS COUNTED 100
[2016-12-04] MEDS ORDERED: MAGNESIUM SULF 50% (8.12 MEQ/2 ML-1 GM VIAL) IVPB ONE (08:58)
[2016-12-04] MEDS: FAMOTIDINE 20 MG/50 ML IVPB 50 ML IVPB SCH (09:05)
--- NOTE | 2016-12-04 09:26 | PN ---
Progress Note (short form) - Note Progress Note: called Dr Crys Fuentes and left a callback number she had itching last night (not new), no rash no diarrhea as she did not eat or drink Vital Signs Period Temp Pulse Resp BP Sys/De Guzman Pulse Ox Last 24 Hr 98.6 F-99.0 F 92-95 16-20 103-122/52-61 99 cor-rrr lungs clear abd no distentionsoft, difffuse discomfort to palpation ext no edema CBC, BMP 12/04/16 07:20 12/04/16 07:20 lfts improving Microbiology 12/03/16 05:50 Urine - Urine Clean Catch Urine Culture - Final 12/03/16 12:15 Stool Clostridium difficile Antigen (DANIELLE) - Final 12/03/16 12:15 Stool Clostridium difficile Toxin Assay - Final a/p hiv- suggest holding ART until her GI symptoms are better she is agreeable check T cells awaiting call back from her ID doctor-last cd4 count august 2016-317, viral load 98 diarrhea- need records from [place], GI consult may need lower endoscopy send stools for stool studies continue hydration cdiff is negative abnormal LFTS hep serology Problem List - Problems (1) Abdominal pain, vomiting, and diarrhea Code(s): R10.9 - UNSPECIFIED ABDOMINAL PAIN R11.10 - VOMITING, UNSPECIFIED R19.7 - DIARRHEA, UNSPECIFIED (2) Abnormal LFTs Code(s): R79.89 - OTHER SPECIFIED ABNORMAL FINDINGS OF BLOOD CHEMISTRY (3) HIV (human immunodeficiency virus infection) Code(s): B20 - HUMAN IMMUNODEFICIENCY VIRUS [HIV] DISEASE
--- NOTE | 2016-12-04 10:28 | CONSULT ---
- Consultation REQUESTING PROVIDER: See below CONSULT REQUEST: We have been asked to surgically evaluate this patient for nausea; vomiting; abdominal pain and incisional hernias. PCP:Lorenza Rios NP HISTORY OF PRESENT ILLNESS: PMHx: HIV PSHx: Hartmans and reversal for ? perforated diverticulitis ? at [facility]. Home Medications Medication Instructions Recorded Atazanavir [Reyataz -] 300 mg PO DAILY 07/13/11 Ritonavir [Norvir] 100 mg PO DAILY 04/30/12 Cholecalciferol (Vitamin D3) 500 units PO DAILY 12/02/16 [Vitamin D -] Dolutegravir Sodium [Tivicay] 50 mg PO DAILY 12/02/16 Dronabinol 5 mg PO DAILY 12/02/16 Famotidine [Pepcid -] 40 mg PO DAILY 12/02/16 Multivitamin [Poly-Vitamin] 1 each PO DAILY 12/02/16 Ondansetron HCl [Zofran] 4 mg PO PRN 12/02/16 Allergies Allergy/AdvReac Type Severity Reaction Status Date / Time erythromycin base Allergy Intermediate Verified 12/02/16 13:37 [Erythromycin Base] iodine [Iodine] Allergy Intermediate Hives Verified 12/02/16 13:37 sulfamethoxazole Allergy Intermediate Verified 12/02/16 13:37 [From Bactrim DS] trimethoprim Allergy Intermediate Verified 12/02/16 13:37 [From Bactrim DS] acetaminophen [From Vicodin] Allergy Mild Itching Verified 12/02/16 13:37 codeine [Codeine] Allergy Mild Itching Verified 12/02/16 13:37 hydrocodone bitartrate Allergy Mild Itching Verified 12/02/16 13:37 [From Vicodin] Penicillins Allergy Mild Itching Verified 12/02/16 13:37 metoclopramide HCl Allergy TONGUE Verified 12/02/16 13:37 [From Reglan] SWELLING prochlorperazine edisylate Allergy Verified 12/02/16 13:37 [From Compazine] prochlorperazine maleate Allergy Verified 03/30/12 14:44 [From Compazine] quetiapine fumarate Allergy Verified 03/30/12 14:44 [From Seroquel] PHYSICAL EXAM: GENERAL: Awake, alert, and fully oriented, in no acute distress. HEAD: Normal with no signs of trauma. EYES: sclera anicteric, conjunctiva clear. NECK: Normal ROM, supple without lymphadenopathy, JVD, or masses. ABDOMEN: Soft, nontender, not distended, normoactive bowel sounds, no guarding, no rebound, no masses. No organomegaly. Healed midline scar w/ proximal reducible incisional hernia; reducible hernia at old colostomy site. MUSCULOSKELETAL: Normal ROM at all joints. No bony deformities or tenderness. No CVA tenderness. UPPER EXTREMITIES: 2+ pulses, warm, well-perfused. No cyanosis. Cap refill <2 seconds. No peripheral edema. LOWER EXTREMITIES: 2+ pulses, warm, well-perfused. No calf tenderness. No peripheral edema. NEUROLOGICAL: Normal speech, gait not observed. PSYCH: Cooperative. Good eye contact. Appropriate mood and affect. SKIN: Warm, dry, normal turgor, no rashes or lesions noted. Vital Signs Temperature 98.7 F 12/04/16 06:00 Pulse Rate 93 H 12/04/16 06:00 Respiratory Rate 18 12/04/16 06:00 Blood Pressure 112/55 12/04/16 06:00 O2 Sat by Pulse Oximetry (%) 99 12/03/16 22:00 Lab Results WBC 3.3 K/mm3 (4.0-10.0) L 12/04/16 07:20 RBC 3.52 M/mm3 (3.60-5.2) L 12/04/16 07:20 Hgb 9.4 GM/dL (10.7-15.3) L 12/04/16 07:20 Hct 27.4 % (32.4-45.2) L 12/04/16 07:20 MCV 78.0 fl (80-96) L 12/04/16 07:20 MCHC 34.1 g/dl (32.0-36.0) 12/04/16 07:20 RDW 15.6 % (11.6-15.6) 12/04/16 07:20 Plt Count 139 K/MM3 (134-434) 12/04/16 07:20 Sodium 143 mmol/L (136-145) 12/04/16 07:20 Potassium 3.8 mmol/L (3.5-5.1) 12/04/16 07:20 Chloride 108 mmol/L (98-107) H 12/04/16 07:20 Carbon Dioxide 21 mmol/L (21-32) 12/04/16 07:20 Anion Gap 14 (8-16) 12/04/16 07:20 BUN 14 mg/dL (7-18) 12/04/16 07:20 Creatinine 0.4 mg/dL (0.55-1.02) L 12/04/16 07:20 Random Glucose 59 mg/dL (74-106) L 12/04/16 07:20 Calcium 10.0 mg/dL (8.5-10.1) 12/04/16 07:20 CT a/p; hospital course to date reviewed IMP:disrrhea and nause and vomiting of ? cause; reducible incisional hernias. PLAN: She may f/u w/ me post discharge for consideration of repair of the incisional hernias once her acute problems for which she presented for this hospitalization are resolved. Adrian Steele MD FACS Visit type - Case Type Case Type: ED Admission - Emergency Emergency Visit: Yes ED Registration Date: 12/02/16 Care time: The patient presented to the Emergency Department on the above date and was hospitalized for further evaluation of their emergent condition. - New patient This patient is new to me today: Yes Date on this admission: 12/04/16 - Critical Care Critical Care patient: No
[2016-12-04] MEDS ORDERED: ONDANSETRON *ODT* 4 MG TABLET SL PRN (10:53)
[2016-12-04] MEDS: HYDROmorphone HCL CARPU-JECT 1 MG/1 ML DISP.SYRIN IVPB PRN (11:51)
--- NOTE | 2016-12-04 13:31 | PN ---
Physical Exam: SUBJECTIVE: Patient seen and examined at the bedside. She had one episode of itchiness overnight, no rashes noted No diarrhea, denies nausea today OBJECTIVE: Patient was seen at [facility] between 11/07/16 to 11/11/2016 for vomiting, diarrhea for about a month. During that admission a colonscopy and endoscopy were performed. [facility] endoscopy report dated 11/10/2016 reviewed: Colonoscopy findings: - the rectum, recto-sigmoid colon and distal sigmoid colon appeared normal: biopsies were taken for histology. Repeat colonoscopy recommended in 10 years Upper GI endoscopy dated 11/10/2016: - erythema at the gastroesophageal junction, biopsied. chronic gastritis, no gross lesions in duodenum. Surgical pathology report dated 11/14 reviewed, negative Patient was seen on 12/01/2016 at [facility] as a walk in for nausea/vomiting and was discharged with outpatient follow up with PCP and GI. Vital Signs Period Temp Pulse Resp BP Sys/De Guzman Pulse Ox Last 24 Hr 98.6 F-99.8 F 92-95 16-20 103-122/52-61 99 GENERAL: The patient is awake, alert, and fully oriented, in no acute distress. HEAD: Normal with no signs of trauma. EYES: PERRL, extraocular movements intact, sclera anicteric, conjunctiva clear. No ptosis. ENT: Ears normal, nares patent, oropharynx clear without exudates, moist mucous membranes. NECK: Trachea midline, full range of motion, supple. LUNGS: Breath sounds equal, clear to auscultation bilaterally, no wheezes ABDOMEN: Soft, +tender, nondistended, hyperactive bowel sounds, old surgical well healed scar EXTREMITIES: no edema. NEUROLOGICAL: Normal speech, gait not observed. PSYCH: Normal mood, normal affect. SKIN: Warm, dry, normal turgor, no rashes or lesions noted Laboratory Results - last 24 hr 12/02/16 12/03/16 12/04/16 22:17 08:10 07:20 WBC RBC Hgb Hct MCV MCH MCHC RDW Plt Count MPV Total Counted Neutrophils % Neutrophils % (Manual) Lymphocytes % Lymphocytes % (Manual) Monocytes % (Manual) Eosinophils % (Manual) Basophils % (Manual) Sodium 143 Potassium 3.8 Chloride 108 H Carbon Dioxide 21 Anion Gap 14 BUN 14 Creatinine 0.4 L Creat Clearance w eGFR > 60 Random Glucose 59 L Calcium 10.0 Magnesium 1.2 L Iron 42 TIBC 129 L Iron Saturation 33 Total Bilirubin 1.0 D AST 96 H ALT 113 H Alkaline Phosphatase 214 H Creatine Kinase 27 Total Protein 5.5 L Albumin 2.8 L Urine Color Yellow Urine Appearance Clear Urine pH 5.0 Ur Specific [place] 1.025 Urine Protein Negative Urine Glucose (UA) Negative Urine Ketones 1+ H Urine Blood Negative Urine Nitrite Negative Urine Bilirubin Negative Urine Urobilinogen Negative Urine RBC <1 Urine WBC 4 Ur Epithelial Cells Rare Urine Bacteria Rare Urine Mucus Rare Hepatitis A IgM Ab Negative Hep Bs Antigen Negative Hep B Core IgM Ab Negative Hepatitis C Ab (EIA) <0.1 12/04/16 07:20 WBC 3.3 L RBC 3.52 L Hgb 9.4 L Hct 27.4 L MCV 78.0 L MCH 26.7 MCHC 34.1 RDW 15.6 Plt Count 139 MPV 8.0 Total Counted 100 Neutrophils % Y Neutrophils % (Manual) 45 D Lymphocytes % Y Lymphocytes % (Manual) 35 D Monocytes % (Manual) 13 H Eosinophils % (Manual) 4 Basophils % (Manual) 2 Sodium Potassium Chloride Carbon Dioxide Anion Gap BUN Creatinine Creat Clearance w eGFR Random Glucose Calcium Magnesium Iron TIBC Iron Saturation Total Bilirubin AST ALT Alkaline Phosphatase Creatine Kinase Total Protein Albumin Urine Color Urine Appearance Urine pH Ur Specific [place] Urine Protein Urine Glucose (UA) Urine Ketones Urine Blood Urine Nitrite Urine Bilirubin Urine Urobilinogen Urine RBC Urine WBC Ur Epithelial Cells Urine Bacteria Urine Mucus Hepatitis A IgM Ab Hep Bs Antigen Hep B Core IgM Ab Hepatitis C Ab (EIA) Active Medications Generic Name Dose Route Start Last Admin Trade Name Freq PRN Reason Stop Dose Admin Diphenhydramine HCl 25 mg 12/03/16 17:09 12/04/16 12:13 Benadryl Injection - IVPUSH 25 mg Q6H PRN Administration FOR ITCHING Hydromorphone HCl 0.5 mg 12/03/16 17:09 12/04/16 11:51 Dilaudid Injection - IVPB 0.5 mg Q8H PRN Administration PAIN Sodium Chloride 1,000 mls @ 75 mls/hr 12/02/16 21:45 12/04/16 07:24 Normal Saline - IV 75 mls/hr ASDIR PRAKASH Administration Metronidazole 100 mls @ 100 mls/hr 12/03/16 18:00 12/04/16 09:05 Flagyl 500mg Premixed Ivpb - IVPB 100 mls/hr Q8H-IV PRAKASH Administration Ondansetron HCl 4 mg 12/04/16 10:53 Zofran Odt - SL Q8H PRN NAUSEA Ranitidine HCl 150 mg 12/04/16 22:00 Zantac - PO BID PRAKASH ASSESSMENT/PLAN: Patient is a 56 year old female with a significant past medical history of HIV, colostomy w/ revision, and diverticulosis. She presented to the ER on 2016 with abdominal pain, nausea, vomiting and diarrhea. Pt. reports one month of ongoing nausea/vomiting, abdominal pain, and diarrhea with intermixed soft green/yellow stools. She states that she was admitted at [facility] 3 weeks ago for 4 days for abdominal pain. While inpatient she received endoscopy and had negative evaluation and discharged without antibiotics. Abdominal pain is on admission was diffused, worsening, chronic, and crampy. She endorses episodes of urinary incontinence 2 days prior. Denies chest pain, fevers, or chills, dysuria. Has been unable to tolerate PO intake d/t recurrent vomiting and unable to take prescription meds. Imaging: CT/Abdomen & pelvis CT w/o contrast: Faint hyperdensity with the lower pole of the spleen. U/S follow up recommended. Multiple ventral hernias. No acute pathology within the abdomen or pelvis. Spigelian hernia with the left lower quad which does contain non obstructed small bowel loops, there are 2 small ventral hernais within the upper abdomen. No evidence of fluid collections or lymphadenopathy. Patient is s/p sigmoid resection. US/Gallbladder: normal abdominal sonogram GI: Abdominal Pain with N/V/D - acute on chronic - improving A/P: As per admission, notes, full workup was recently done at [facility], retrieved [facility] records with patient consent - see above (see paper chart) N/V/D improving today, tolerated clears this morning Now on lactose, low fiber diet as per GI Stool work up still pending Negative for c diff Stopped ivf, converted meds to PO in anticipation for d/c tomorrow Elevated ast/alt - trending down A/P: hepatitis panel pending ast/alt trending down ID: HIV + as per history - chronic A/P: CD4 176 as per patient HIV + since 1994, on Norvir, Dolutegravir and Reytaaz Norvir and Reytaaz formulary in hospital, Dolutegravir non formulary Holding ART until her GI symptoms are better, likely restart tomorrow ID following, patient has an ID physician she follows outpt. ID doctor is Dr Jay Fuentes [phone] Hematology: Microcytoc anemia - likely chronic A/P: Likely secondary to chronic inflammatory bowel disease Hematology, GI follow up as an outpatient hmg/hct low stable F.E.N. Fluids: tolerating PO Electrolytes: hypomag repleted, repeat mag levels wnl Nutrition: lactos/low fiber diet Prophylaxis: DVT: scds, no anticoag secondary to low hmg/hct GI: Zofran scheduled Disposition: Monitor patient in OBS. Full code. Discharge tomorrow anticipated. Follow up with her PCP, HIV specialist and GI outpatient. Visit type - Emergency Visit Emergency Visit: Yes ED Registration Date: 12/02/16 Care time: The patient presented to the Emergency Department on the above date and was hospitalized for further evaluation of their emergent condition. - New Patient This patient is new to me today: No - Critical Care Critical Care patient: No - Discharge Referral Referred to [facility] Med P.C.: No
[2016-12-04] MEDS: ONDANSETRON *ODT* 4 MG TABLET SL SCH ×2 (17:23→23:50)
[2016-12-04] MEDS ORDERED: ONDANSETRON *ODT* 4 MG TABLET SL ONE (20:07)
--- NOTE | 2016-12-04 20:21 | PN ---
GI Progress Note Subjective: diarrhia resolved after NPO abdominal pain less, no nausea and no vomiting, diarrhea worse after drinking fruit juices - Objective Vital Signs: Vital Signs Temperature 98.1 F 12/04/16 18:15 Pulse Rate 92 H 12/04/16 18:15 Respiratory Rate 20 12/04/16 18:15 Blood Pressure 137/90 12/04/16 18:15 O2 Sat by Pulse Oximetry (%) 99 12/04/16 09:00 Constitutional: No Distress Eyes: No: Sclera Icterus Cardiovascular: Yes: Regular Rate and Rhythm Respiratory: Yes: CTA Bilaterally ...Palpate: Yes: Soft, Tenderness (suprapubic area) ...Percussion: Yes: Tympanitic Labs: CBC, BMP 12/04/16 07:20 12/04/16 07:20 Problem List - Problems (1) Abdominal pain, vomiting, and diarrhea Assessment/Plan: most likely functional and osmotic diarrhea r advance diet low residue lactose free diet will continue [id number] mg tid for possible bacterial over growth will need colonoscopy even as an outpatient if no clinical improvement with present management Code(s): R10.9 - UNSPECIFIED ABDOMINAL PAIN R11.10 - VOMITING, UNSPECIFIED R19.7 - DIARRHEA, UNSPECIFIED (2) Ventral hernia Code(s): K43.9 - VENTRAL HERNIA WITHOUT OBSTRUCTION OR GANGRENE (3) Elevated liver enzymes Code(s): R74.8 - ABNORMAL LEVELS OF OTHER SERUM ENZYMES (4) Anemia Code(s): D64.9 - ANEMIA, UNSPECIFIED
[2016-12-04] MEDS ORDERED: PT OWN MED DRAWER 7, Y5N ONE (20:35)
[2016-12-04] MEDS ORDERED: ONDANSETRON 4 MG/2 ML VIAL IVPB ONE (21:23)
[2016-12-04] MEDS: RANITIDINE HCL 150 MG TABLET (FP) PO SCH (22:22)
[2016-12-04] MEDS: metroNIDAZOLE 250 MG TABLET PO SCH (22:22)
[2016-12-04] MEDS: PREGABALIN 50 MG CAPSULE PO SCH (22:22)
[2016-12-04] MEDS: GABAPENTIN 300 MG CAPSULE (FP) PO SCH ×2 (22:22→22:30)
[2016-12-04] MEDS: diphenhydrAMINE HCL 25 MG CAPSULE (FP) PO PRN (22:23)
[2016-12-04] MEDS: MELATONIN 5 MG TABLETS PO PRN (22:24)
[2016-12-04] MEDS: HYDROmorphone HCL 2 MG TABLET PO PRN (23:43)
[2016-12-04] MEDS ORDERED: hydrOXYzine HCL 25 MG TABLET (FP) PO ONE (23:59)
[2016-12-05 00:06] LABS: % CD 3 POS. LYMPH. 73.8 % (57.5-86.2); % CD 4 POS LYM 21.4 % (30.8-58.5); %CD3+CD4+CD8+ 0.9 % (Not Estab.); %CD3+CD4+CD8- 20.6 % (Not Estab.); %CD3+CD4-CD8+ 46.2 % (Not Estab.); %CD3+CD4-CD8- 6.1 % (Not Estab.); ABSO. CD 3 959 /uL (622-2402); ABSOLUTE CD 4 HELPER 278 /uL (359-1519); AbsCD3+CD4+CD8+ 12 /uL (Not Estab.); AbsCD3+CD4-CD8+ 601 /uL (Not Estab.); AbsCD3+CD4-CD8- 79 /uL (Not Estab.); CD4/CD8 0.45 (0.92-3.72); CD4/CD8 NYSDOH RATIO 0.45 (Not Estab.); WHITE BLOOD COUNT 3.1 x10E3/uL (3.4-10.8)
[2016-12-05] MEDS: metroNIDAZOLE 250 MG TABLET PO SCH (06:50)
[2016-12-05] MEDS: GABAPENTIN 300 MG CAPSULE (FP) PO SCH ×3 (06:51→22:23)
[2016-12-05 08:15] LABS: MCH 26.2 pg (25.7-33.7); MCHC 34.1 g/dl (32.0-36.0); MEAN CELL VOLUME 76.9 fl (80-96); MEAN PLT VOLUME 8.8 fl (7.5-11.1); RDW 16.2 % (11.6-15.6); WHITE BLOOD COUNT 3.7 K/mm3 (4.0-10.0)
[2016-12-05 08:17] LABS: ALBUMIN 2.8 g/dl (3.4-5.0); ANION GAP 8 (8-16); CALCIUM 10.3 mg/dL (8.5-10.1); CO2 25 mmol/L (21-32); GLUCOSE,RANDOM 86 mg/dL (74-106); MAGNESIUM 1.3 mg/dL (1.8-2.4)
[2016-12-05 08:21] LABS: ALK PHOS 217 U/L (45-117); BILIRUBIN,TOTAL 0.6 mg/dL (0.2-1.0); CREATININE 0.4 mg/dL (0.55-1.02); SGOT/AST 93 U/L (15-37); SGPT/ALT 102 U/L (12-78); TOT PROT 5.7 g/dl (6.4-8.2)
[2016-12-05] MEDS: ONDANSETRON *ODT* 4 MG TABLET SL SCH ×3 (08:23→23:34)
[2016-12-05] MEDS: diphenhydrAMINE HCL 25 MG CAPSULE (FP) PO PRN ×2 (08:23→22:48)
[2016-12-05] MEDS: PREGABALIN 50 MG CAPSULE PO SCH ×2 (09:26→22:23)
[2016-12-05] MEDS: RANITIDINE HCL 150 MG TABLET (FP) PO SCH ×2 (09:26→22:23)
[2016-12-05 10:11] LABS: BASOPHIL (MANUAL) 1 % (0-2.0); TOTAL CELLS COUNTED 100
[2016-12-05 10:12] LABS: PLATELET COMMENT2 NO CLOTTING DETECTED; PLATELET COUNT 114 K/MM3 (134-434); PLATELET ESTIMATE DECREASED (NORMAL)
[2016-12-05] MEDS ORDERED: MAGNESIUM SULF 50% (8.12 MEQ/2 ML-1 GM VIAL) IVPB ONE (10:17)
[2016-12-05] MEDS ORDERED: LEVOFLOXACIN 250 MG TABLET (FP) PO SCH (10:30)
[2016-12-05] MEDS ORDERED: SODIUM CHLORIDE 1,000 ML IV SCH (10:45)
--- NOTE | 2016-12-05 10:55 | PN ---
Physical Exam: SUBJECTIVE: Patient seen and examined. Feels weak, has not gotten out of bed. Has not eaten. Vomited x 1 last night. Diffuse abdominal pain. No further episodes of diarrhea. OBJECTIVE: Vital Signs Period Temp Pulse Resp BP Sys/De Guzman Pulse Ox Last 24 Hr 97.5 F-98.9 F 84-94 18-24 94-137/40-90 97 GENERAL: The patient is awake, alert, and fully oriented, appears weak. HEAD: Normal with no signs of trauma. EYES: PERRL, extraocular movements intact, sclera anicteric, conjunctiva clear. No ptosis. ENT: Ears normal, nares patent, oropharynx clear without exudates, moist mucous membranes. NECK: Trachea midline, full range of motion, supple. LUNGS: Breath sounds equal, clear to auscultation bilaterally, no wheezes, no crackles, no accessory muscle use. HEART: Regular rate and rhythm, S1, S2 without murmur, rub or gallop. ABDOMEN: Soft, diffusely tender but not peritoneal, nondistended, normoactive bowel sounds, no guarding, no rebound, no hepatosplenomegaly, no masses. EXTREMITIES: 2+ pulses, warm, well-perfused, no edema. NEUROLOGICAL: Cranial nerves II through XII grossly intact. Normal speech, gait not observed. PSYCH: Normal mood, normal affect. SKIN: Warm, dry, normal turgor, no rashes or lesions noted. Laboratory Results - last 24 hr 12/03/16 12/04/16 12/05/16 08:10 13:44 06:47 WBC 3.1 L 3.7 L RBC 3.86 Hgb 10.1 L Hct 29.7 L MCV 76.9 L MCH 26.2 MCHC 34.1 RDW 16.2 H Plt Count 114 L MPV 8.8 Absolute Lymphs (auto) 1.3 Total Counted 100 Neutrophils % Y Neutrophils % (Manual) 44 Lymphocytes % Y Lymphocytes % (Manual) 48 H D Monocytes % (Manual) 6 Eosinophils % (Manual) 1 Basophils % (Manual) 1 Lymphocytes 41 Nucleated RBCs TNP Platelet Estimate Decreased Platelet Comment No clotting detected Sodium Potassium Chloride Carbon Dioxide Anion Gap BUN Creatinine Creat Clearance w eGFR Random Glucose Calcium Magnesium 2.0 D Iron 42 TIBC 129 L Iron Saturation 33 Total Bilirubin AST ALT Alkaline Phosphatase Total Protein Albumin Absolute CD3 Count 959 % CD3+ Lymphocytes 73.8 Absolute CD4 Porter 278 L % CD4+ Lymphocyte 21.4 L CD4/CD8 Ratio 0.45 L % CD8+ Lymphocyte 47.1 H Absolute CD8 Count 612 Hepatitis A IgM Ab Negative Hep Bs Antigen Negative Hep B Core IgM Ab Negative Hepatitis C Ab (EIA) <0.1 12/05/16 06:47 WBC RBC Hgb Hct MCV MCH MCHC RDW Plt Count MPV Absolute Lymphs (auto) Total Counted Neutrophils % Neutrophils % (Manual) Lymphocytes % Lymphocytes % (Manual) Monocytes % (Manual) Eosinophils % (Manual) Basophils % (Manual) Lymphocytes Nucleated RBCs Platelet Estimate Platelet Comment Sodium 140 Potassium 3.7 Chloride 107 Carbon Dioxide 25 Anion Gap 8 BUN 12 Creatinine 0.4 L Creat Clearance w eGFR > 60 Random Glucose 86 D Calcium 10.3 H Magnesium 1.3 L D Iron TIBC Iron Saturation Total Bilirubin 0.6 D AST 93 H ALT 102 H Alkaline Phosphatase 217 H Total Protein 5.7 L Albumin 2.8 L Absolute CD3 Count % CD3+ Lymphocytes Absolute CD4 Porter % CD4+ Lymphocyte CD4/CD8 Ratio % CD8+ Lymphocyte Absolute CD8 Count Hepatitis A IgM Ab Hep Bs Antigen Hep B Core IgM Ab Hepatitis C Ab (EIA) Active Medications Generic Name Dose Route Start Last Admin Trade Name Freq PRN Reason Stop Dose Admin Dicyclomine HCl 10 mg 12/05/16 11:00 Bentyl - PO Q8H PRAKASH Diphenhydramine HCl 25 mg 12/04/16 15:46 12/05/16 08:23 Benadryl - PO 25 mg Q6H PRN Administration FOR ITCHING Gabapentin 300 mg 12/04/16 22:00 12/05/16 06:51 Neurontin - PO Not Given TID PRAKASH Hydromorphone HCl 2 mg 12/04/16 16:27 12/04/16 23:43 Dilaudid - PO 2 mg Q8H PRN Administration PAIN Sodium Chloride 1,000 mls @ 125 mls/hr 12/05/16 10:45 Normal Saline - IV 12/05/16 18:44 ASDIR PRAKASH Magnesium Sulfate 2 gm 12/05/16 10:17 Magnesium Sulfate IVPB 12/05/16 10:18 ONCE ONE Melatonin 5 mg 12/04/16 16:06 12/04/16 22:24 Melatonin PO 5 mg HS PRN Administration INSOMNIA Ondansetron HCl 4 mg 12/04/16 16:00 12/05/16 08:23 Zofran Odt - SL 4 mg Q8H PRAKASH Administration Pregabalin 50 mg 12/04/16 22:00 12/05/16 09:26 Lyrica - PO 50 mg BID PRAKASH Administration Ranitidine HCl 150 mg 12/04/16 22:00 12/05/16 09:26 Zantac - PO 150 mg BID PRAKASH Administration Imaging: CTAP 12/02: Faint hyperdensity in lower pole of spleen. Ventral hernias. No acute pathology. Gallbladder u/s 12/02: Normal sonogram Summary of records from [facility] admission: Patient was seen at [facility] between 11/07/16 to 11/11/2016 for vomiting, diarrhea for about a month. During that admission a colonscopy and endoscopy were performed. [facility] endoscopy report dated 11/10/2016 reviewed: Colonoscopy findings: -incomplete prep -the rectum, recto-sigmoid colon and distal sigmoid colon appeared normal: biopsies were taken for histology. Repeat colonoscopy recommended in 10 years Upper GI endoscopy dated 11/10/2016: -Erythema at the gastroesophageal junction, biopsied. Chronic gastritis, no gross lesions in duodenum. Surgical pathology report dated 11/14 reviewed, negative Patient was seen on 12/01/2016 at [facility] as a walk in for nausea/vomiting and was discharged with outpatient follow up with PCP and GI. ASSESSMENT/PLAN: 56 year old female with a history of HIV, bowel resection and colostomy w/ revision, and diverticulosis placed in observation on 12/02/2016 with crampy abdominal pain, nausea, vomiting and diarrhea. 1. GI: Abd pain, n/v/d -See records of full workup at [facility], summarized above -All stool studies negative to date -Cramping pain continues; ?IBS - trial of Bentyl -Zofran prn nausea -Low lactose/low residue diet -Diarrhea seems to occur only with eating, less likely infectious -Dc Flagyl as patient reports itching and history of allergy -LFTs mildly elevated, trending down -Hepatitis panel negative Elevated AST/ALT -Trending down -Hep negative -GI following 2. ID: HIV -CD4 278 -Holding HAART until symptoms improve -ID following -Medication list obtained from primary ID (Dr. Jay Fuentes) and in chart -Re-start Marinol 3. Heme: Anemia -?Malabsorption -Chronic, stable 4. F/E/N -Resume IVF -Replete Mg -Lactose/low residue diet 5. Ppx -SCDs -Ambulation DISPO: Admit for inpatient services. Visit type - Emergency Visit Emergency Visit: Yes ED Registration Date: 12/05/16 Care time: The patient presented to the Emergency Department on the above date and was hospitalized for further evaluation of their emergent condition. - New Patient This patient is new to me today: Yes Date on this admission: 12/08/16 - Critical Care Critical Care patient: No - Discharge Referral Referred to [facility] Med P.C.: No
[2016-12-05] MEDS: DICYCLOMINE HCL 10 MG CAPSULE PO SCH ×3 (11:24→19:07)
--- NOTE | 2016-12-05 11:38 | PN ---
Progress Note (short form) - Note Progress Note: still with itching requesting Marinol Vital Signs Period Temp Pulse Resp BP Sys/De Guzman Pulse Ox Last 24 Hr 98.6 F-99.0 F 92-95 16-20 103-122/52-61 99 cor-rrr lungs clear abd no distention soft, difffuse discomfort to palpation ext no edema CBC, BMP 12/05/16 06:47 12/05/16 06:47 Microbiology 12/04/16 12:39 Stool Salmonella/Shigella Culture - Preliminary NO ENTERIC PATHOGENS, 24 HOURS, ON PRIMARY PLATES 12/04/16 12:39 Stool Yersinia Culture - Preliminary NO ENTERIC PATHOGENS, 24 HOURS, ON PRIMARY PLATES 12/04/16 12:39 Stool Vibrio Culture - Final NO GROWTH OF VIBRIO SPECIES OBTAINED 12/04/16 12:39 Stool Escherichia coli 0157 Culture - Final NO GROWTH OF E COLI 0157 OBTAINED 12/04/16 11:20 Stool AFB Smear Concentration - Preliminary 12/04/16 11:20 Stool Mycobacterial Culture - Preliminary 12/04/16 11:20 Stool Norovirus GI - Preliminary 12/04/16 11:20 Stool Norovirus GII - Preliminary 12/04/16 12:20 Stool Microsporidia Stain - Preliminary 12/04/16 11:20 Stool Cryptosporidium Antigen - Final 12/04/16 11:20 Stool Giardia Antigen (DANIELLE) - Final 12/03/16 12:15 Stool Salmonella/Shigella Culture - Preliminary NO ENTERIC PATHOGENS, 24 HOURS, ON PRIMARY PLATES 12/03/16 12:15 Stool Yersinia Culture - Preliminary NO ENTERIC PATHOGENS, 24 HOURS, ON PRIMARY PLATES 12/03/16 12:15 Stool Vibrio Culture - Final NO GROWTH OF VIBRIO SPECIES OBTAINED 12/03/16 12:15 Stool Escherichia coli 0157 Culture - Final NO GROWTH OF E COLI 0157 OBTAINED 12/03/16 05:50 Urine - Urine Clean Catch Urine Culture - Final 12/03/16 12:15 Stool Clostridium difficile Antigen (DANIELLE) - Final 12/03/16 12:15 Stool Clostridium difficile Toxin Assay - Final a/p d/w Dr Do who feels this is most likely functional diet per GI continue hydration cdiff is negative f/u cultures hiv meds on hold cd4 pending abnormal LFTS hep serology Problem List - Problems (1) Abdominal pain, vomiting, and diarrhea Code(s): R10.9 - UNSPECIFIED ABDOMINAL PAIN R11.10 - VOMITING, UNSPECIFIED R19.7 - DIARRHEA, UNSPECIFIED (2) Abnormal LFTs Code(s): R79.89 - OTHER SPECIFIED ABNORMAL FINDINGS OF BLOOD CHEMISTRY (3) HIV (human immunodeficiency virus infection) Code(s): B20 - HUMAN IMMUNODEFICIENCY VIRUS [HIV] DISEASE
[2016-12-05] MEDS: DRONABINOL 2.5 MG CAPSULE PO SCH ×2 (14:02→22:23)
--- NOTE | 2016-12-05 17:27 | PN ---
GI Progress Note Subjective: abdominal pain and diarrhea improved,tolerating diet, had 1 LBM since 8am - Objective Vital Signs: Vital Signs Temperature 99.3 F 12/05/16 14:00 Pulse Rate 100 H 12/05/16 14:00 Respiratory Rate 20 12/05/16 14:00 Blood Pressure 98/61 12/05/16 14:00 O2 Sat by Pulse Oximetry (%) 97 12/05/16 09:36 Constitutional: Well Nourished Eyes: Yes: Conjunctiva Clear HENT: Yes: Atraumatic Neck: Yes: Supple Cardiovascular: Yes: Regular Rate and Rhythm Respiratory: Yes: CTA Bilaterally ...Palpate: Yes: Soft. No: Firm/Rigid, Guarding, Hepatomegaly, Mass, Pulsatile Mass, Splenomegaly, Tenderness, Tenderness, Epigastium Problem List - Problems (1) Abdominal pain, vomiting, and diarrhea Assessment/Plan: --improved R> continue [id number] mg tid for 2 weeks for possible small bowel bacterial overgrowth Code(s): R10.9 - UNSPECIFIED ABDOMINAL PAIN R11.10 - VOMITING, UNSPECIFIED R19.7 - DIARRHEA, UNSPECIFIED (2) Ventral hernia Code(s): K43.9 - VENTRAL HERNIA WITHOUT OBSTRUCTION OR GANGRENE (3) Elevated liver enzymes Code(s): R74.8 - ABNORMAL LEVELS OF OTHER SERUM ENZYMES (4) Anemia Code(s): D64.9 - ANEMIA, UNSPECIFIED
[2016-12-05] MEDS ORDERED: PT OWN MED DRAWER 7, Y5N ONE (20:52)
[2016-12-05] MEDS: MELATONIN 5 MG TABLETS PO PRN (22:24)
[2016-12-06] MEDS: GABAPENTIN 300 MG CAPSULE (FP) PO SCH ×3 (06:28→21:31)
[2016-12-06] MEDS: DICYCLOMINE HCL 10 MG CAPSULE PO SCH ×3 (06:28→21:32)
[2016-12-06] MEDS: ONDANSETRON *ODT* 4 MG TABLET SL SCH ×3 (08:00→23:45)
[2016-12-06] MEDS: PREGABALIN 50 MG CAPSULE PO SCH ×2 (10:18→21:32)
[2016-12-06] MEDS: HYDROmorphone HCL 2 MG TABLET PO PRN ×3 (10:18→23:31)
[2016-12-06] MEDS: RANITIDINE HCL 150 MG TABLET (FP) PO SCH ×2 (10:18→21:31)
[2016-12-06] MEDS: DRONABINOL 2.5 MG CAPSULE PO SCH ×2 (10:18→21:31)
--- NOTE | 2016-12-06 11:58 | PN ---
Progress Note (short form) - Note Progress Note: ID Discussed wit Dr Do today Selected Entries 12/06/16 10:00 Temperature 99.0 F Pulse Rate 99 H Respiratory 18 Rate Blood Pressure 113/54 ABD Soft mild tender Microbiology 12/04/16 12:39 Stool Gram Stain - Final 12/04/16 12:39 Stool Escherichia coli 0157 Culture - Final NO GROWTH OF VIBRIO SPECIES OBTAINED NO GROWTH OF E COLI 0157 OBTAINED 12/04/16 12:39 Stool Yersinia Culture - Preliminary NO ENTERIC PATHOGENS, 24 HOURS, ON PRIMARY PLATES NO ENTERIC PATHOGENS, 24 HOURS, ON PRIMARY PLATES 12/04/16 12:20 Stool Microsporidia Stain - Preliminary Laboratory Tests 12/03/16 12/05/16 12/05/16 08:10 06:47 06:47 WBC 3.7 L Hgb 10.1 L Hct 29.7 L Plt Count 114 L BUN 12 Creat Clearance w eGFR > 60 Total Bilirubin 0.6 D AST 93 H Absolute CD4 Check 278 L Assessment Abd pain Nausea diarrhea Plan Per GI Off ART Norberto GUIDRY
[2016-12-06] MEDS ORDERED: PT OWN MED DRAWER 7, Y5N ONE ×3 (15:08→21:14)
--- NOTE | 2016-12-06 15:54 | PN ---
Physical Exam: SUBJECTIVE: Patient seen and examined. She is mildly improved, she is eating better. She says she is too weak and need rehab. OBJECTIVE: Vital Signs Period Temp Pulse Resp BP Sys/De Guzman Pulse Ox Last 24 Hr 98.1 F-99.3 F 85-99 17-20 101-115/44-64 PE Neuro: alert, awake, cn 2-12intact Pulm: CTAB CV: s1 s2 rrr no mrg Abd: s nt nd + bs Ext: warm, no le edema Laboratory Results - last 24 hr 12/06/16 06:00 Magnesium 1.5 L Active Medications Generic Name Dose Route Start Last Admin Trade Name Freq PRN Reason Stop Dose Admin Dicyclomine HCl 10 mg 12/05/16 22:55 12/06/16 15:12 Bentyl - PO 10 mg TID PRAKASH Administration Diphenhydramine HCl 25 mg 12/04/16 15:46 12/05/16 22:48 Benadryl - PO 25 mg Q6H PRN Administration FOR ITCHING Dronabinol 2.5 mg 12/05/16 13:00 12/06/16 10:18 Marinol - PO 2.5 mg BID PRAKASH Administration Gabapentin 300 mg 12/04/16 22:00 12/06/16 15:18 Neurontin - PO 300 mg TID PRAKASH Administration Hydromorphone HCl 2 mg 12/04/16 16:27 12/06/16 10:18 Dilaudid - PO 2 mg Q8H PRN Administration PAIN Melatonin 5 mg 12/04/16 16:06 12/05/16 22:24 Melatonin PO 5 mg HS PRN Administration INSOMNIA Ondansetron HCl 4 mg 12/04/16 16:00 12/06/16 08:00 Zofran Odt - SL 4 mg Q8H PRAKASH Administration Pregabalin 50 mg 12/04/16 22:00 12/06/16 10:18 Lyrica - PO 50 mg BID PRAKASH Administration Ranitidine HCl 150 mg 12/04/16 22:00 12/06/16 10:18 Zantac - PO 150 mg BID PRAKASH Administration Imaging: CTAP 10: Faint hyperdensity in lower pole of spleen. Ventral hernias. No acute pathology. Gallbladder u/s 12/02: Normal sonogram Summary of records from [facility] admission: Patient was seen at [facility] between 11/07/16 to 11/11/2016 for vomiting, diarrhea for about a month. During that admission a colonscopy and endoscopy were performed. [facility] endoscopy report dated 11/10/2016 reviewed: Colonoscopy findings: -incomplete prep -the rectum, recto-sigmoid colon and distal sigmoid colon appeared normal: biopsies were taken for histology. Repeat colonoscopy recommended in 10 years Upper GI endoscopy dated 11/10/2016: -Erythema at the gastroesophageal junction, biopsied. Chronic gastritis, no gross lesions in duodenum. Surgical pathology report dated 11/14 reviewed, negative Patient was seen on 12/01/2016 at [facility] as a walk in for nausea/vomiting and was discharged with outpatient follow up with PCP and GI. Assessment: 56 year old female with a history of HIV, bowel resection and colostomy w/ revision, and diverticulosis placed in observation on 12/02/2016 with crampy abdominal pain, nausea, vomiting and diarrhea. Plan: GI 1. Abd pain, n/v/d - Possibly functional issue - All stool studies negative to date - Cramping improved continue Bentyl - Low lactose/low residue diet - Note, off Flagyl as patient reports itching and history of allergy Elevated AST/ALT - Trending down - Hep negative - GI following 2. ID: HIV - CD4 278 - Holding HAART until symptoms improve - Medication list obtained from primary ID (Dr. Jay Fuentes) and in chart - Appetite improved; continue Marinol 3. Heme: Anemia -?Malabsorption -Chronic, stable 4. Hypomagnesemia -Replete Mg 2gm x1 5. Ppx -SCDs -Ambulation - PT eval for SNF placement, pt reports she is too weak Visit type - Emergency Visit Emergency Visit: Yes ED Registration Date: 12/05/16 Care time: The patient presented to the Emergency Department on the above date and was hospitalized for further evaluation of their emergent condition. - New Patient This patient is new to me today: Yes Date on this admission: 12/06/16 - Critical Care Critical Care patient: No
[2016-12-06] MEDS ORDERED: MAGNESIUM SULF 50% (8.12 MEQ/2 ML-1 GM VIAL) IVPB ONE (15:59)
[2016-12-06] MEDS ORDERED: MAGNESIUM OXIDE 400 MG TABLET (FP) PO ONE (18:41)
[2016-12-06] MEDS ORDERED: BENZOCAINE/MENTH/CETYLPYRD CL 1 EACH LOZENGE MM PRN (20:10)
[2016-12-06] MEDS: RIFAXIMIN 550 MG TABLET (UD) PO SCH (21:31)
[2016-12-06] MEDS: MELATONIN 5 MG TABLETS PO PRN (21:33)
[2016-12-07] MEDS: GABAPENTIN 300 MG CAPSULE (FP) PO SCH ×2 (06:32→14:07)
[2016-12-07] MEDS: RIFAXIMIN 550 MG TABLET (UD) PO SCH ×3 (06:33→21:11)
[2016-12-07] MEDS: DICYCLOMINE HCL 10 MG CAPSULE PO SCH ×3 (06:33→21:11)
[2016-12-07 08:00] LABS: ALBUMIN 2.6 g/dl (3.4-5.0); ANION GAP 7 (8-16); CALCIUM 10.4 mg/dL (8.5-10.1); CO2 28 mmol/L (21-32); GLUCOSE,RANDOM 97 mg/dL (74-106)
[2016-12-07 08:03] LABS: ALK PHOS 196 U/L (45-117); BILIRUBIN,TOTAL 0.4 mg/dL (0.2-1.0); CREATININE 0.6 mg/dL (0.55-1.02); SGOT/AST 42 U/L (15-37); SGPT/ALT 65 U/L (12-78); TOT PROT 5.3 g/dl (6.4-8.2)
[2016-12-07] MEDS: ONDANSETRON *ODT* 4 MG TABLET SL SCH ×2 (08:25→17:23)
[2016-12-07] MEDS: PREGABALIN 50 MG CAPSULE PO SCH (09:34)
[2016-12-07] MEDS: RANITIDINE HCL 150 MG TABLET (FP) PO SCH ×2 (09:34→21:11)
[2016-12-07] MEDS: DRONABINOL 2.5 MG CAPSULE PO SCH ×2 (09:34→21:11)
--- NOTE | 2016-12-07 13:02 | PN ---
Progress Note (short form) - Note Progress Note: no diarrhea or cramps Vital Signs Period Temp Pulse Resp BP Sys/De Guzman Pulse Ox Last 24 Hr 98.1 F-100.4 F 72-91 17-18 90-107/44-69 96 cor-rrr lulngs clear abd soft,nt ext no edema CBC, BMP 12/05/16 06:47 12/07/16 06:30 Laboratory Tests 12/03/16 08:10 Absolute CD4 [place] 278 L Microbiology 12/04/16 11:20 Stool AFB Smear Concentration - Final 12/04/16 11:20 Stool Mycobacterial Culture - Preliminary 12/04/16 12:39 Stool Gram Stain - Final 12/04/16 12:39 Stool Salmonella/Shigella Culture - Final NO GROWTH OF SALMONELLA OR SHIGELLA SPECIES OBTAINED 12/04/16 12:39 Stool Campylobacter Culture - Final NO GROWTH OF CAMPYLOBACTER SPECIES OBTAINED 12/04/16 12:39 Stool Yersinia Culture - Final NO GROWTH OF YERSINIA SPECIES OBTAINED 12/04/16 12:39 Stool Vibrio Culture - Final NO GROWTH OF VIBRIO SPECIES OBTAINED 12/04/16 12:39 Stool Escherichia coli 0157 Culture - Final NO GROWTH OF E COLI 0157 OBTAINED 12/03/16 12:15 Stool Salmonella/Shigella Culture - Final NO GROWTH OF SALMONELLA OR SHIGELLA SPECIES OBTAINED 12/03/16 12:15 Stool Campylobacter Culture - Final NO GROWTH OF CAMPYLOBACTER SPECIES OBTAINED 12/03/16 12:15 Stool Yersinia Culture - Final NO GROWTH OF YERSINIA SPECIES OBTAINED 12/03/16 12:15 Stool Vibrio Culture - Final NO GROWTH OF VIBRIO SPECIES OBTAINED 12/03/16 12:15 Stool Escherichia coli 0157 Culture - Final NO GROWTH OF E COLI 0157 OBTAINED 12/04/16 11:20 Stool Norovirus GI - Preliminary 12/04/16 11:20 Stool Norovirus GII - Preliminary 12/04/16 12:20 Stool Microsporidia Stain - Preliminary 12/04/16 11:20 Stool Cryptosporidium Antigen - Final 12/04/16 11:20 Stool Giardia Antigen (DANIELLE) - Final 12/03/16 05:50 Urine - Urine Clean Catch Urine Culture - Final 12/03/16 12:15 Stool Clostridium difficile Antigen (DANIELLE) - Final 12/03/16 12:15 Stool Clostridium difficile Toxin Assay - Final a/p d/w Dr Do who feels this is most likely functional diet/meds per GI HIV- cd4 278 she will resume her HIV meds as outpt after she sees her PMD next week please call back if needed Problem List - Problems (1) Abdominal pain, vomiting, and diarrhea Code(s): R10.9 - UNSPECIFIED ABDOMINAL PAIN R11.10 - VOMITING, UNSPECIFIED R19.7 - DIARRHEA, UNSPECIFIED (2) Abnormal LFTs Code(s): R79.89 - OTHER SPECIFIED ABNORMAL FINDINGS OF BLOOD CHEMISTRY (3) HIV (human immunodeficiency virus infection) Code(s): B20 - HUMAN IMMUNODEFICIENCY VIRUS [HIV] DISEASE
[2016-12-07] MEDS ORDERED: PT OWN MED DRAWER 7, Y5N ONE (14:01)
--- NOTE | 2016-12-07 16:02 | DS ---
Physical Exam: SUBJECTIVE: Patient seen and examined OBJECTIVE: Vital Signs Period Temp Pulse Resp BP Sys/De Guzman Pulse Ox Last 24 Hr 98.2 F-100.4 F 72-88 18-20 90-107/48-69 96 PHYSICAL EXAM GENERAL: The patient is awake, alert, and fully oriented, in no acute distress. HEAD: Normal with no signs of trauma. EYES: PERRL, extraocular movements intact, sclera anicteric, conjunctiva clear. ENT: Ears normal, nares patent, oropharynx clear without exudates, moist mucous membranes. NECK: Trachea midline, full range of motion, supple. LUNGS: Breath sounds equal, clear to auscultation bilaterally, no wheezes, no crackles, no accessory muscle use. HEART: Regular rate and rhythm, S1, S2 without murmur, rub or gallop. ABDOMEN: Soft, nontender, nondistended, normoactive bowel sounds, no guarding, no rebound, no hepatosplenomegaly, no masses. EXTREMITIES: 2+ pulses, warm, well-perfused, no edema. NEUROLOGICAL: Cranial nerves II through XII grossly intact. Normal speech, gait not observed. PSYCH: Normal mood, normal affect. SKIN: Warm, dry, normal turgor, no rashes or lesions noted. LABS Laboratory Results - last 24 hr 12/07/16 06:30 Sodium 140 Potassium 4.2 Chloride 105 Carbon Dioxide 28 Anion Gap 7 L BUN 24 H D Creatinine 0.6 D Creat Clearance w eGFR > 60 Random Glucose 97 Calcium 10.4 H Magnesium 2.0 D Total Bilirubin 0.4 D AST 42 H D ALT 65 D Alkaline Phosphatase 196 H Total Protein 5.3 L Albumin 2.6 L HOSPITAL COURSE: Date of Admission:12/05/16 Date of Discharge: 12/07/16 Discharge Summary Reason For Visit: COMBINED ABD PAIN, VOMITING, AND DIARRHEA Current Active Problems Abdominal pain, vomiting, and diarrhea (Acute) Abnormal LFTs (Acute) Anemia (Acute) Elevated liver enzymes (Acute) HIV (human immunodeficiency virus infection) (Acute) Ventral hernia (Acute) Condition: Improved - Instructions Referrals: Adrian Steele MD [Staff Physician] - Gabi Reyna MD [Staff Physician] - STAFF,NOT ON [Primary Care Provider] - - Home Medications Comprehensive Discharge Medication List: Ambulatory Orders Atazanavir [Reyataz -] 300 mg PO DAILY 04/20/12 Ritonavir [Norvir] 100 mg PO DAILY 04/30/12 Cholecalciferol (Vitamin D3) [Vitamin D -] 500 units PO DAILY 12/02/16 Dolutegravir Sodium [Tivicay] 50 mg PO DAILY 12/02/16 Dronabinol 5 mg PO DAILY 12/02/16 Famotidine [Pepcid -] 40 mg PO DAILY 12/02/16 Multivitamin [Poly-Vitamin] 1 each PO DAILY 12/02/16 Ondansetron HCl [Zofran] 4 mg PO PRN 12/02/16 Rifaximin [Xifaxan -] 550 mg PO TID #40 tablet 12/07/16 - Discharge Referral Referred to [facility] No
--- NOTE | 2016-12-07 17:03 | PN ---
Physical Exam: SUBJECTIVE: Patient seen and examined. Pt is feeling mildly better, still weak. She was ready for discharge and then had a BM with BRBPR. OBJECTIVE: Vital Signs Period Temp Pulse Resp BP Sys/De Guzman Pulse Ox Last 24 Hr 98.2 F-100.4 F 72-88 18-20 90-107/48-69 96 PE Neuro: alert, awake, cn 2-12intact Pulm: CTAB CV: s1 s2 rrr no mrg Abd: s nt nd + bs Ext: warm, no le edema Laboratory Results - last 24 hr 12/07/16 06:30 Sodium 140 Potassium 4.2 Chloride 105 Carbon Dioxide 28 Anion Gap 7 L BUN 24 H D Creatinine 0.6 D Creat Clearance w eGFR > 60 Random Glucose 97 Calcium 10.4 H Magnesium 2.0 D Total Bilirubin 0.4 D AST 42 H D ALT 65 D Alkaline Phosphatase 196 H Total Protein 5.3 L Albumin 2.6 L Active Medications Generic Name Dose Route Start Last Admin Trade Name Freq PRN Reason Stop Dose Admin Benzocaine/Menthol 1 each 12/06/16 20:10 12/06/16 21:33 Cepacol Lozenge - MM 1 each Q2H PRN Administration SORE THROAT Dicyclomine HCl 10 mg 12/05/16 22:55 12/07/16 14:07 Bentyl - PO 10 mg TID PRAKASH Administration Diphenhydramine HCl 25 mg 12/04/16 15:46 12/05/16 22:48 Benadryl - PO 25 mg Q6H PRN Administration FOR ITCHING Dronabinol 2.5 mg 12/05/16 13:00 12/07/16 09:34 Marinol - PO 2.5 mg BID PRAKASH Administration Gabapentin 300 mg 12/04/16 22:00 12/07/16 14:07 Neurontin - PO 300 mg TID PRAKASH Administration Hydromorphone HCl 1 mg 12/06/16 18:27 12/06/16 23:31 Dilaudid - PO 1 mg Q8H PRN Administration PAIN Melatonin 5 mg 12/04/16 16:06 12/06/16 21:33 Melatonin PO 5 mg HS PRN Administration INSOMNIA Ondansetron HCl 4 mg 12/04/16 16:00 12/07/16 08:25 Zofran Odt - SL 4 mg Q8H PRAKASH Administration Pregabalin 50 mg 12/04/16 22:00 12/07/16 09:34 Lyrica - PO 50 mg BID PRAKASH Administration Ranitidine HCl 150 mg 12/04/16 22:00 12/07/16 09:34 Zantac - PO 150 mg BID PRAKASH Administration Rifaximin 550 mg 12/06/16 22:00 12/07/16 14:07 Xifaxan - PO 550 mg TID PRAKASH Administration Imaging: CTAP 12/02: Faint hyperdensity in lower pole of spleen. Ventral hernias. No acute pathology. Gallbladder u/s 12/02: Normal sonogram Summary of records from [facility] admission: Patient was seen at [facility] between 11/07/16 to 11/11/2016 for vomiting, diarrhea for about a month. During that admission a colonscopy and endoscopy were performed. [facility] endoscopy report dated 11/10/2016 reviewed: Colonoscopy findings: -incomplete prep -the rectum, recto-sigmoid colon and distal sigmoid colon appeared normal: biopsies were taken for histology. Repeat colonoscopy recommended in 10 years Upper GI endoscopy dated 11/10/2016: -Erythema at the gastroesophageal junction, biopsied. Chronic gastritis, no gross lesions in duodenum. Surgical pathology report dated 11/14 reviewed, negative Patient was seen on 12/01/2016 at [facility] as a walk in for nausea/vomiting and was discharged with outpatient follow up with PCP and GI. Assessment: 56 year old female with a history of HIV, bowel resection and colostomy w/ revision, and diverticulosis placed in observation on 12/02/2016 with crampy abdominal pain, nausea, vomiting and diarrhea. Plan: Lower GI bleed - Monitor for further bleeding - Check CBC - Trend HH - Re consult GI Abd pain, n/v/d - Improved, possibly functional issue - Continue Bentyl for Cramping - Low lactose/low residue diet - Rifaximin 500mg TID x2 weeks (12/06-) Elevated AST/ALT - Trending down - Hep negative HIV - CD4 278 - Holding HAART until symptoms improve - Medication list obtained from primary ID (Dr. Jay Fuentes) and in chart - Appetite improved; continue Marinol Anemia - ?Malabsorption - Chronic, stable Hypomagnesemia -Resolved Ppx - SCDs - Ambulation - Cannot go to SNF Dispo: - Cancel dispo due to hematochezia Visit type - Emergency Visit Emergency Visit: Yes ED Registration Date: 12/05/16 Care time: The patient presented to the Emergency Department on the above date and was hospitalized for further evaluation of their emergent condition. - New Patient This patient is new to me today: No - Critical Care Critical Care patient: No
[2016-12-07 18:51] LABS: MCH 26.6 pg (25.7-33.7); MCHC 34.3 g/dl (32.0-36.0); MEAN CELL VOLUME 77.6 fl (80-96); MEAN PLT VOLUME 9.2 fl (7.5-11.1); PLATELET COUNT 163 K/MM3 (134-434); RDW 16.2 % (11.6-15.6); WHITE BLOOD COUNT 4.3 K/mm3 (4.0-10.0)
[2016-12-07] MEDS: HYDROmorphone HCL 2 MG TABLET PO PRN (18:54)
[2016-12-07 20:27] LABS: PLATELET ESTIMATE ADEQUATE (NORMAL); TOTAL CELLS COUNTED 100
[2016-12-07 20:28] LABS: REACTIVE LYMPHOCYTES 10 % (0-80)
[2016-12-08] MEDS: ONDANSETRON *ODT* 4 MG TABLET SL SCH ×2 (00:20→10:38)
[2016-12-08] MEDS: RIFAXIMIN 550 MG TABLET (UD) PO SCH ×2 (05:37→14:46)
[2016-12-08] MEDS: HYDROmorphone HCL 2 MG TABLET PO PRN (05:37)
[2016-12-08] MEDS: DICYCLOMINE HCL 10 MG CAPSULE PO SCH ×2 (05:37→14:46)
[2016-12-08 09:38] LABS: BASOPHIL 1.1 % (0-2.0); EOSINOPHIL 2.5 % (0-4.5); MCH 26.5 pg (25.7-33.7); MCHC 34.2 g/dl (32.0-36.0); MEAN CELL VOLUME 77.5 fl (80-96); MEAN PLT VOLUME 9.1 fl (7.5-11.1); NEUTROPHILS 46.5 % (42.8-82.8); RDW 16.2 % (11.6-15.6); WHITE BLOOD COUNT 5.6 K/mm3 (4.0-10.0)
[2016-12-08] MEDS ORDERED: PT OWN MED DRAWER 7, Y5N ONE ×2 (10:33→14:40)
[2016-12-08] MEDS: RANITIDINE HCL 150 MG TABLET (FP) PO SCH (10:38)
[2016-12-08] MEDS: DRONABINOL 2.5 MG CAPSULE PO SCH (10:38)
[2016-12-08 11:50] LABS: PLATELET COMMENT2 NO CLOTTING DETECTED; PLATELET COMMENT3 FEW GIANT PLTS; PLATELET COUNT 145 K/MM3 (134-434); PLATELET ESTIMATE SLT DECREASED (NORMAL)
[2016-12-08] MEDS ORDERED: diphenhydrAMINE HCL 25 MG CAPSULE (FP) PO ONE (12:34)
--- NOTE | 2016-12-08 12:34 | DS ---
Physical Exam: SUBJECTIVE: Patient seen and examined. She feels better today, her appetite is improved. No further blood in BM OBJECTIVE: Vital Signs Period Temp Pulse Resp BP Sys/De Guzman Pulse Ox Last 24 Hr 98.1 F-99.3 F 79-90 18-20 90-109/51-66 100 PE Neuro: alert, awake, cn 2-12intact Pulm: CTAB CV: s1 s2 rrr no mrg Abd: s nt nd + bs, midline incision healed, LLQ reproducible hernia Ext: warm, no le edema Laboratory Results - last 24 hr 12/07/16 12/08/16 17:20 09:25 WBC 4.3 5.6 D RBC 3.49 L 3.43 L Hgb 9.3 L 9.1 L Hct 27.1 L 26.6 L MCV 77.6 L 77.5 L MCH 26.6 26.5 MCHC 34.3 34.2 RDW 16.2 H 16.2 H Plt Count 163 D 145 MPV 9.2 9.1 Total Counted 100 Neutrophils % No Result Required. 46.5 D Neutrophils % (Manual) 36 L Lymphocytes % No Result Required. 38.9 D Lymphocytes % (Manual) 42 H Monocytes % 11.0 H Monocytes % (Manual) 12 H D Eosinophils % 2.5 D Basophils % 1.1 D Other Cell Type Platelet Estimate Adequate Slt decreased Platelet Comment Few large plts No clotting detected HOSPITAL COURSE: Date of Admission:12/05/16 Date of Discharge: 12/08/16 Minutes to complete discharge: 37 Discharge Summary Reason For Visit: COMBINED ABD PAIN, VOMITING, AND DIARRHEA Current Active Problems Abdominal pain, vomiting, and diarrhea (Acute) Abnormal LFTs (Acute) Anemia (Acute) Elevated liver enzymes (Acute) HIV (human immunodeficiency virus infection) (Acute) Ventral hernia (Acute) Hospital Course: Initial Hospital Course: Briefly, this 56 year old female with pmh of HIV (CD4 count 176 checked last month by ID doctor), diverticulosis, bowel resection with colostomy and revision of colostomy presented with 1 month hx of abdominal pain, nausea, and vomiting. Abdominal pain is diffuse, crampy, 10/10 worsening after meals. Patient was evaluated at [facility] times and admitted once for 4 days. Patient underwent full workup including endoscopy. Patient had chills, n/v /d, [place], lightheadedness, and urinary incontinence x2 days. Imaging: CTAP 12/02: Faint hyperdensity in lower pole of spleen. Ventral hernias. No acute pathology. Gallbladder u/s 12/02: Normal sonogram Summary of records from [facility] admission: Patient was seen at [facility] between 11/07/16 to 11/11/2016 for vomiting, diarrhea for about a month. During that admission a colonscopy and endoscopy were performed. [facility] endoscopy report dated 11/10/2016 reviewed: Colonoscopy findings: -incomplete prep -the rectum, recto-sigmoid colon and distal sigmoid colon appeared normal: biopsies were taken for histology. Repeat colonoscopy recommended in 10 years Upper GI endoscopy dated 11/10/2016: -Erythema at the gastroesophageal junction, biopsied. Chronic gastritis, no gross lesions in duodenum. Surgical pathology report dated 11/14 reviewed, negative Patient was seen on 12/01/2016 at [facility] as a walk in for nausea/vomiting and was discharged with outpatient follow up with PCP and GI. Subsequent Hospital Course/Progress Note/Discharge Summary: 1. Hematochezia - Possible anal fissure vs hemrrhoid - D/w Dr. Cowart, can follow up in office for repeat colonoscopy, most recent scope done 10/2016 - Hgb stable, no further blood noted, pt asymptomatic on discharge Abd pain, n/v/d - Improved, possibly functional issue - Continue Bentyl for Cramping - Low lactose/low residue diet - Rifaximin 500mg TID x2 weeks (12/06-12/08)- pre approval sent, insurance did not cover Elevated AST/ALT - Trending down - Hep negative HIV - CD4 278 - Holding HAART until after sees [facility], [facility] information given - Medication list obtained from primary ID (Dr. Jay Fuentes) and in chart - Appetite improved; continue Marinol Anemia - ?Malabsorption - Chronic, stable Hypomagnesemia -Resolved Dispo: - Home with meds and plan above with PCP and GI follow up - Pt aware and agrees to above plan Condition: Stable - Instructions Diet, Activity, Other Instructions: Please return to the ED for any new, persistent, or worsening symptoms. Follow up with your PCP in 1 week Take medications as directed on home medication list Hold HIV medications until you see your Primary care doctor next week at [facility] follow up information Saturday- Dr. Thornton or - Dr. Farrar GI referral enclosed follow up in 2 weeks Referrals: Adrian Steele MD [Staff Physician] - Carmen Farrar MD [Staff Physician] - STAFF,NOT ON [Primary Care Provider] - Neymar Do MD [Staff Physician] - 2 Weeks (Follow up for outpt colonoscopy) Disposition: VNS/HOME HEALTH CARE - Home Medications Comprehensive Discharge Medication List: Ambulatory Orders Atazanavir [Reyataz -] 300 mg PO DAILY 07/13/11 Ritonavir [Norvir] 100 mg PO DAILY 04/30/12 Cholecalciferol (Vitamin D3) [Vitamin D -] 500 units PO DAILY 12/02/16 Dolutegravir Sodium [Tivicay] 50 mg PO DAILY 12/02/16 Dronabinol 5 mg PO DAILY 12/02/16 Famotidine [Pepcid -] 40 mg PO DAILY 12/02/16 Multivitamin [Poly-Vitamin] 1 each PO DAILY 12/02/16 Ondansetron HCl [Zofran] 4 mg PO PRN 12/02/16 Dicyclomine HCl [Bentyl -] 10 mg PO TID #21 tab 12/07/16 Rifaximin [Xifaxan -] 550 mg PO TID #40 tablet 12/07/16 This patient is new to me today: No Emergency Visit: Yes ED Registration Date: 12/05/16 Care time: The patient presented to the Emergency Department on the above date and was hospitalized for further evaluation of their emergent condition. Critical Care patient: No - Discharge Referral Referred to [facility] No
[2016-12-08 15:50] VITALS: BP 103/49; PULSE 92; TEMP 98.2
== END 2016-12-08 15:32 | disposition home health service (06) | DRG 253 ==
LOC: JER 13:31 → UNDOADMOB 20:38 → INTOOBSV 20:38 → JERBED 20:38 → J5S 22:49 → JERBED 22:49 → J5S 22:49 → OBSVTOIN 12-05 16:52
PROVIDERS: ADMIT Internal Medicine; ATTEND Nurse Practitioner Acute Care
DX: K62.5 Hemorrhage of anus and rectum (principal); R10.9 Unspecified abdominal pain; R11.2 Nausea with vomiting, unspecified; D64.9 Anemia, unspecified; E83.42 Hypomagnesemia; R19.7 Diarrhea, unspecified; E83.52 Hypercalcemia; M25.511 Pain in right shoulder; D73.89 Other diseases of spleen; R74.0 Nonspecific elevation of levels of transaminase and lactic acid dehydrogenase [LDH]; A08.8 Other specified intestinal infections; K57.90 Diverticulosis of intestine, part unspecified, without perforation or abscess without bleeding; R79.89 Other specified abnormal findings of blood chemistry; F17.210 Nicotine dependence, cigarettes, uncomplicated; K43.9 Ventral hernia without obstruction or gangrene; R63.4 Abnormal weight loss; Z68.26 Body mass index [BMI] 26.0-26.9, adult; Z21 Asymptomatic human immunodeficiency virus [HIV] infection status; Z96.643 Presence of artificial hip joint, bilateral; K29.50 Unspecified chronic gastritis without bleeding
CPT/HCPCS: 36415; 73030-TC-RT; 74176-TC; 76705-TC; 80053; 80074; 81003; 81015; 82272; 82728; 83540; 83550; 83605; 83690; 83735; 85025; 86359; 86360; 87015; 87045; 87046; 87086; 87116; 87177; 87205; 87206; 87207; 87209; 87324; 87328; 87329; 87449; 87798; 93005; 93010; 97116-GP; 97161-GP; 99283-25; G0378